=== PATIENT | male | born 1945 | race Caucasian/White ===

== ENCOUNTER 2018-01-07 11:50 | Inpatient (IN) ==
--- NOTE | 2018-01-07 12:26 | Emergency Department Note ---
Disposition Clinical Impression: Bladder mass Hydronephrosis Qualifiers: Hydronephrosis type: other Qualified Code(s): N13.39 - Other hydronephrosis Disposition: Admitted As Inpatient Condition: Serious [facility] Provider[facility] - Forms: ED Satisfaction Letter Time of Disposition: 12:56 Male Urogenital HPI - General Chief complaint: ED Urogenital-Male Stated complaint: Mass in bladder [facility] Time Seen by Provider: 01/07/18 12:18 Source: patient, other Mode of arrival: wheelchair Limitations: other Nursing Notes Reviewed: Yes Vital Signs Reviewed: Yes - History of Present Illness HPI Narrative: 72-year-old male comes from the [facility] apparently he has had some problems with renal insufficiency had an ultrasound that showed he was not emptying his bladder. Has seen nephrology who referred him to urology. He has been seen once there. Today his caregiver noticed blood in his urine [facility] that shows a very large mass in the bladder consistent with malignancy. Pt Subjective Complaint: other (Hematuria bladder mass) Onset (ago): Just BUSINESS MANAGEMENT CONSULTANT Duration: constant Reports: hematuria - Related Data Allergies Allergy/AdvReac Type Severity Reaction Status Date / Time No Known Allergies Allergy Verified 01/07/18 12:01 All systems ED: reviewed and negative except as stated. Constitutional: Denies: fever, chills, weakness, weight change Eyes: Denies: eye pain, eye discharge, vision change ENT ED: Denies: ear pain, throat pain, dental pain, hearing loss, epistaxis, congestion, dysphagia Cardiovascular: Denies: chest pain, palpitations, dyspnea on exertion, edema, syncope Respiratory: Denies: cough, dyspnea, wheezes, hemoptysis, stridor Gastrointestinal: Denies: abdominal pain, nausea, vomiting, diarrhea, constipation, hematemesis, melena, hematochezia Genitourinary: Reports: hematuria. Denies: urgency, dysuria, frequency Musculoskeletal: Denies: back pain, neck pain, arthralgia, myalgia Integumentary: Denies: rash, abrasion, lesions Neurological: Denies: headache, weakness, numbness, paresthesias, confusion, abnormal gait, vertigo Psychiatric: Denies: anxiety, depression, suicidal thoughts, homicidal thoughts , auditory hallucinations, visual hallucinations Endocrine: Denies: fatigue Hematological/Lymphatic: Denies: easy bleeding, easy bruising Allergic/Immunologic: Denies: facial swelling, urticaria Past Medical History - Past Medical History Medical history: Reports: cancer, CVA, renal disease - Social History Smoking Status: Current every day smoker Alcohol use: Reports: none Drug use: Reports: none Physical Exam - General Limitations: no limitations General appearance: alert, in no apparent distress - Head Head exam: normal inspection - Eye Eye exam: Present: normal appearance - ENT ENT exam: normal exam, normal oropharynx, mucous membranes moist, normal external ear exam - Neck Neck exam: Present: normal inspection, full ROM, trachea midline - Chest Chest inspection: Present: normal inspection, symmetric chest wall rise - Respiratory Respiratory exam: Present: normal lung sounds bilaterally - Cardiovascular Cardiovascular exam: Present: regular rate, normal rhythm, normal heart sounds - Neurological Exam Neurological exam: Present: alert, oriented X3, normal gait - Psychiatric Psychiatric exam: Present: normal affect, normal mood - Skin Skin exam: Present: warm, dry, intact, normal color Course - Reevaluation(s) Reevaluation #1: 72[place]year-old [place] patient was seen at [facility] today had a CT scan due to hematuria that shows a large bladder mass with infiltration of surrounding structures. Does show some obstruction with severe left hydronephrosis. Consultation obtained with urology who recommends admission and he will see in consult. Patient will be admitted to the hospitalist. Time: 12:54 - Consultations Consultation #1: Discussed with laura Lambert and he will see in consult. Time: 12:54 Consultation #2: Discussed with laura Martinez. Time: 12:54 Vital Signs Temperature 98.5 F 01/07/18 12:01 Pulse Rate 55 01/07/18 12:01 Respiratory Rate 18 01/07/18 12:01 Blood Pressure 127/86 01/07/18 12:01 O2 Sat by Pulse Oximetry 99 01/07/18 12:01 Temperature 98.5 F 01/07/18 12:01 Pulse Rate 55 01/07/18 12:01 Respiratory Rate 18 01/07/18 12:01 Blood Pressure 127/86 01/07/18 12:01 O2 Sat by Pulse Oximetry 99 01/07/18 12:01 Oxygen Delivery Oxygen Delivery Room Air
[2018-01-07] MEDS ORDERED: traMADol 50 MG TABLET PO PRN (14:29)
[2018-01-07 15:10] LABS: Basophils % 0.6 %; Eosinophils # 0.3 K/mcL (0.0-0.6); Eosinophils % 4.8 %; Hematocrit 38.2 % (37.5-50.1); Hemoglobin 12.5 g/dL (12.9-16.9); Immature Granulocytes % 0.1 % (0-4); Lymphocytes # 1.4 K/mcL (0.6-4.6); Mean Corpuscular HGB Conc 32.7 g/dL (31.6-35.5); Mean Corpuscular Hemoglobin 28.5 pg (28.0-33.3); Mean Corpuscular Volume 87.2 fL (83.0-100.0); Mean Platelet Volume 10.3 fL (9.4-12.4); Monocytes # 0.3 K/mcL (0.0-1.3); Monocytes % 4.7 %; Neutrophils # 4.8 K/mcL (1.6-8.9); Platelet Count 206 K/mcL (140-400); Red Blood Count 4.38 M/mcL (4.19-5.50); Red Cell Distribution Width 13.4 % (11.5-14.5); Segmented Neutrophils % 69.8 %
[2018-01-07] MEDS ORDERED: Naloxone 0.4 MG/ML INJ IVP PRN (15:49)
[2018-01-07] MEDS ORDERED: Acetaminophen 325 MG TABLET PO PRN (15:57)
[2018-01-07 17:20] LABS: Albumin 3.7 g/dL (3.5-5.7); Albumin/Globulin Ratio 1.4 (1.1-2.2); Bilirubin,Total 0.5 mg/dL (0.3-1.0); Calcium 9.5 mg/dL (8.6-10.3); Globulin 2.7 g/dL (2.4-3.5); Potassium 4.4 mEq/L (3.5-5.1); Total Protein 6.4 g/dL (6.4-8.9)
--- NOTE | 2018-01-07 17:35 | Urology - Consult Note ---
Date of Encounter: 01/07/18 Time of Encounter: 17:09 - Assessment and Plan (1) Bladder mass Current Visit: Yes Status: Acute Assessment and plan: The bladder mass seen on CT scan is almost certainly urothelial malignancy. Based on the invasion into the bladder wall, seminal vesicles and prostate this is an advanced cancer. The hydronephrosis also indicates a more high-grade invasive cancer. I suspect that this is at least a stage T3 lesion. Further evaluation of the pulmonary nodules as necessary as there is potential for metastatic disease. These findings were all communicated with the patient and he did voiced an understanding. He also did voiced desire in proceeding with all available surgical and oncology options. I feel the first step is to proceed with a TURBT. This will be planned tomorrow. At that time I will perform bilateral retrograde pyelograms and attempt a left ureteral stent. I suspect I will have less than 50% chance to successfully place the stent based on the CT findings. If I am unable to place the ureteral stent he will require a nephrostomy tube during this hospitalization. We discussed the risks of the procedure which includes injury to his urinary tract, bladder perforation, need for further procedures and potential inability to place a stent. (2) Hydronephrosis Current Visit: Yes Status: Acute Assessment and plan: Secondary to obstruction from bladder mass. Will attempt ureteral stent placement during TURBT. Qualifiers: Hydronephrosis type: other Qualified Code(s): N13.39 - Other hydronephrosis Urology CN:HPI Consult date: 01/07/18 Reason for consult Urology: Hydronephrosis History of present illness: 72-year-old male was actually seen in the last month in urology office for hydronephrosis of unknown etiology. A CT scan was ordered but had not been performed yet. His caregiver noticed gross hematuria and brought him to the [place] emergency room. CT scan at the time showed a large left sided bladder mass and severe hydronephrosis. There is concern for invasion into the prostate and seminal vesicles. There are some small pulmonary nodules of unknown etiology. No other evidence of widespread metastatic disease. Past Med Surg Social Fam HX - Past Medical History Medical history: cancer, CVA, renal disease Psychiatric history: no psych history - Past Surgical History Surgical History: cataract, other - Social History Smoking Status: Current every day smoker Smokeless Tobacco Status: No Alcohol use: none Drug use: none - Family History Mother Living Status: Hx Family Neuromuscular Disorders: Yes (Alzheimer's) Sister Living Status: Cause of : Crohn's Hx Family GI Disorders: Yes (Crohn's) Medications and Allergies Atorvastatin Calcium [Lipitor] 20 mg PO DAILY 01/07/18 [History] Brimonidine 0.2% [Alphagan] 1 drop RIGHT EYE BID 01/07/18 [History] Diltiazem HCl [Tiazac] 120 mg PO DAILY 01/07/18 [History] Gabapentin [Neurontin] 600 mg PO BID 01/07/18 [History] Levothyroxine Sodium [Levoxyl] 75 mcg PO DAILY 01/07/18 [History] Memantine [Namenda] 5 mg PO BID 01/07/18 [History] Omeprazole [PriLOSEC] 20 mg PO DAILY 01/07/18 [History] Tamsulosin [Flomax] 0.4 mg PO DAILY 01/07/18 [History] Timolol Maleate 0.5% [Timolol Maleate 0.5%] 1 drop RIGHT EYE BID 01/07/18 [ History] Tramadol HCl [Ultram] 100 mg PO TID PRN 01/07/18 [History] cloNIDine HCl [CloNIDine HCl] 0.1 mg PO BID 01/07/18 [History] 3 Allergy/AdvReac Type Severity Reaction Status Date / Time No Known Allergies Allergy Verified 01/07/18 12:01 Review of Systems - Constitutional fatigue, no chills, no fever(s) - EENT Nose, mouth and throat: no dizziness, no headache(s) - Cardiovascular no chest pain - Respiratory no cough - Gastrointestinal abdominal pain, nausea - Genitourinary hematuria - Musculoskeletal back pain - Integumentary no erythema - Neurological no confusion - Psychiatric no anxiety - Hematologic/Lymphatic no easy bleeding - Allergic/Immunologic no throat swelling Exam Initial Vital Signs Temp Pulse Resp BP Pulse Ox 98.5 F 55 18 127/86 99 01/07/18 12:01 01/07/18 12:01 01/07/18 12:01 01/07/18 12:01 01/07/18 12:01 - General physical appearance Present: no distress - Eyes Present: PERRL, conjunctiva is clear - ENT Present: normal nares, no hearing loss - Neck Present: no masses, no lymphadenopathy - Respiratory Present: normal respiratory effort - Cardiovascular Cardiovascular exam IM: RRR - Abdomen Abdomen: Present: soft, suprapubic tenderness. Absent: masses - Integumentary Absent: no rash, no growths - Neurologic Present: normal coordination. Absent: disoriented, confused Urology Results - Labs 01/07/18 14:59 Abnormal lab results Hgb 12.5 g/dL (12.9-16.9) L 01/07/18 14:59 All other labs normal. Consult Discharge Plan - Plan [facility]errals: [facility] [Primary Care Provider] -
--- NOTE | 2018-01-07 18:17 | Internal Med History&Physical ---
Date of Encounter: 01/07/18 Time of Encounter: 15:00 Assessment and Plan (1) Bladder mass Current visit: Yes Status: Acute Acute bladder mass detected on CT scan today at [facility] d/t pts. report of hematuria. Pt. has hx of throat cancer. Reports difficulty w/urination and retention d/t sever hydronephrosis. Bladder mass appears left-sided w/possible invasion into the prostate and seminal vesicles. No other evidence of widespread metastatic disease. Urology consult ordered and I appreciate the consult. Recommendation from Urology is to attempt TURBT tomorrow with bilateral retrograde pyelograms and possible left ureteral stent placement. D/t CT findings, stent placement may not be possible and nephrostomy tube may be required. Monitor I&O. Pt. discussed w/Dr. Littlejohn who agrees w/plan of care. Pt. high risk for further morbidity d/t possible advanced cancer, current severe hydronephrosis, Hx of cancer, current sx, and risk factors. Inpatient. (2) Hydronephrosis Current visit: Yes Status: Acute Acute hydronephrosis secondary to obstruction from bladder mass. Urology consult ordered and I appreciate the consult. Recommendation is for TURBT tomorrow for possible ureteral stent placement. Monitor I&O. Qualifiers: Hydronephrosis type: other Qualified Code(s): N13.39 - Other hydronephrosis (3) Unintended weight loss Current visit: Yes Status: Acute Acute and unintended weight loss of 30 pounds in 4 months time. Pt. and caregiver report his appetite has been reduced as well. Nutrition consult ordered for PO supplementation. Pt. reports he was placed on renal diet previously and did not eat d/t lack of food choices. Regular diet ordered. Monitor I&O and daily weight. (4) CKD (chronic kidney disease) stage 3, GFR 30-59 ml/min Current visit: Yes Status: Chronic Hx of CKD, currently stage 3 w/GFR of 31 and creatinine of 2.12. Will use IV fluids judiciously if warranted and avoid nephrotoxins. Strict I&O. (5) History of CVA in adulthood Current visit: Yes Status: Chronic Hx of previous CVA w/residual rt.-sided weakness. PT/OT consults ordered to assess patient for ambulation strength, stability, safety, and possible home assistive needs based on reports of history of falls. Falls/safety precautions, up with assist, and bed rest w/bathroom privileges w/assist only. Dysphagia nursing screen ordered. (6) DVT prophylaxis Current visit: Yes Status: Acute Bilateral SCDs on LEs for DVT prophylaxis d/t current hematuria. Internal Medicine - H&P: HPI Chief complaint: Hematuria Admitted From: Hospital to Hospital Transfer Plans for Post Hospital Care: Home History of present illness: Mr. 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 Patient's caregiver reports seeing blood in his urine and took patient to the [facility] for dx. CT scan showed bladder mass. Pt. referred to [facility]. Pt. reports associated difficulty w/ urination and bladder emptying. Pt. also reports weight loss of 30 pounds in 4 months with reduced appetite, hx of falls, and recent carotid endarterectomy of the left carotid and states right carotid has 100% blockage. Pt. denies recent illness, fever, chills, nausea, vomiting, headache, changes in vision, chest pain, palpitations, abdominal pain, diarrhea, constipation, numbness, tingling, presyncope, or syncope. Past Med Surg Social Fam HX - Past Medical History Source: patient, old records reviewed, other (Caregiver) Medical history: cancer (Throat), CVA (2012 w/rt-sided residual weakness), renal disease Psychiatric history: no psych history - Past Surgical History Surgical History: cataract, other - Social History Smoking Status: Current every day smoker Packs per day: 1/2 PPD Smokeless Tobacco Status: No Alcohol use: none Drug use: none Current living situation: Home Activity Level: Uses cane/walker Recent Out of Country Travel Within the Last 8 Weeks: No Exposure or Possible Exposure to Illness During Travel: No - Family History Mother Race: Family Member Ethnicity: Non- Living Status: Hx Family Neuromuscular Disorders: Yes (Alzheimer's) Sister Race: Family Member Ethnicity: Non- Living Status: Cause of : Crohn's Hx Family GI Disorders: Yes (Crohn's) Father History Unknown: Yes Race: Family Member Ethnicity: Non- Living Status: Internal Medicine - H&P: Meds Atorvastatin Calcium [Lipitor] 20 mg PO DAILY 01/07/18 [History] Brimonidine 0.2% [Alphagan] 1 drop RIGHT EYE BID 01/07/18 [History] Diltiazem HCl [Tiazac] 120 mg PO DAILY 01/07/18 [History] Gabapentin [Neurontin] 600 mg PO BID 01/07/18 [History] Levothyroxine Sodium [Levoxyl] 75 mcg PO DAILY 01/07/18 [History] Memantine [Namenda] 5 mg PO BID 01/07/18 [History] Omeprazole [PriLOSEC] 20 mg PO DAILY 01/07/18 [History] Tamsulosin [Flomax] 0.4 mg PO DAILY 01/07/18 [History] Timolol Maleate 0.5% [Timolol Maleate 0.5%] 1 drop RIGHT EYE BID 01/07/18 [ History] Tramadol HCl [Ultram] 100 mg PO TID PRN 01/07/18 [History] cloNIDine HCl [CloNIDine HCl] 0.1 mg PO BID 01/07/18 [History] 3 Allergy/AdvReac Type Severity Reaction Status Date / Time No Known Allergies Allergy Verified 01/07/18 12:01 All Systems PM: A 10-system review of systems was performed and is negative for pertinent findings except as documented above in the HPI. - Constitutional Constitutional: as per HPI, weight loss (30 pounds in 4 months, unintended), no chills, no fever(s), no night sweats - EENT Eyes: no change in vision, no discharge, no pain, no photophobia Ears: no ear discharge, no ear pain, no tinnitus Nose, mouth and throat: no dysphagia, no nasal discharge, no neck pain, no sore throat - Breasts Breasts: as per HPI - Cardiovascular Cardiovascular ROS IM: no chest pain, no diaphoresis, no dyspnea, no lightheadedness, no palpitations, no syncope - Respiratory Respiratory: no cough, no dyspnea, no wheezing, no excessive phlegm production - Gastrointestinal Gastrointestinal: as per HPI, other (Reduced appetite), no abdominal pain, no diarrhea, no hematemesis, no hematochezia, no melena, no nausea, no vomiting - Genitourinary Genitourinary ROS male: as per HPI, difficulty urinating, hematuria - Musculoskeletal Musculoskeletal ROS IM: no numbness, no tingling - Integumentary Integumentary IM: no rash, no unusual bruising - Neurological Neurological ROS: as per HPI, frequent falls, no confusion, no convulsions, no focal weakness, no numbness, no tingling, no tremor(s) - Psychiatric Psychiatric: as per HPI, change in appetite - Endocrine Endocrine IM: as per HPI - Hematologic/Lymphatic Hematologic/Lymphatic: no easy bruising - Allergic/Immunologic Allergic/Immunologic: as per HPI - Constitutional Vitals: Temp Pulse Resp BP Pulse Ox 98.5 F 52 20 109/60 96 01/07/18 12:01 01/07/18 15:11 01/07/18 15:11 01/07/18 15:11 01/07/18 15:11 General appearance: Present: cooperative, A&O X 3, pleasant, no acute distress, loss of weight, answers questions appropriately - Head Head exam: Present: atraumatic, normocephalic - Eye Eye exam: Present: PERRL, conjuntiva pink, sclera anicteric Pupils: Present: PERRL - ENT ENT exam: Present: normal exam - Neck Neck exam general surgery: Present: normal inspection, supple, trachea midline. Absent: lymphadenopathy - Respiratory Respiratory exam: Present: CTAB. Absent: accessory muscle use, rales, rhonchi, wheezes - Cardiovascular Cardiovascular exam: Present: RRR, +S1, +S2. Absent: diastolic murmur, gallop, rubs, systolic murmur - GI/Abdominal GI/Abdominal exam: Present: normal bowel sounds, soft, no peritoneal signs. Absent: distended, tenderness - Rectal Rectal exam: Present: deferred - Additional comments: exam deferred. - Extremities Exam Extremities exam: Present: warm, radial pulses palpable and symmetrical. Absent : calf tenderness, cyanotic, pedal edema - Back Exam Back exam: Present: normal inspection - Neurological Exam Neurological exam: Present: CN II-XII intact, oriented X3, no focal deficits. Absent: pronater drift, facial droop, speech deficit - Psychiatric Psychiatric exam: Present: normal affect, normal mood - Skin Skin exam: Present: abrasion (Left arm near IV site. Caregiver states she is not sure why he gets sores. ), dry, intact Internal Med - H&P Results - Labs CBC & Chem 7: 01/07/18 14:59 01/07/18 14:59
[2018-01-07] MEDS: cloNIDine HCl 0.1 MG TABLET PO SCH (21:04)
[2018-01-07] MEDS: Gabapentin 300 MG CAPSULE PO SCH (21:04)
[2018-01-08 06:00] LABS: Basophils % 0.4 %; Eosinophils # 0.4 K/mcL (0.0-0.6); Eosinophils % 5.8 %; Hematocrit 36.5 % (37.5-50.1); Hemoglobin 12.5 g/dL (12.9-16.9); Immature Granulocytes % 0.1 % (0-4); Lymphocytes # 1.9 K/mcL (0.6-4.6); Lymphocytes % 24.9 %; Mean Corpuscular HGB Conc 34.2 g/dL (31.6-35.5); Mean Corpuscular Hemoglobin 28.8 pg (28.0-33.3); Mean Corpuscular Volume 84.1 fL (83.0-100.0); Mean Platelet Volume 10.8 fL (9.4-12.4); Monocytes # 0.5 K/mcL (0.0-1.3); Neutrophils # 4.6 K/mcL (1.6-8.9); Platelet Count 212 K/mcL (140-400); Red Blood Count 4.34 M/mcL (4.19-5.50); Red Cell Distribution Width 13.5 % (11.5-14.5); Segmented Neutrophils % 61.8 %
[2018-01-08 06:25] LABS: Albumin 3.5 g/dL (3.5-5.7); Albumin/Globulin Ratio 1.5 (1.1-2.2); Bilirubin,Total 0.4 mg/dL (0.3-1.0); Calcium 9.3 mg/dL (8.6-10.3); Chol/HDL Ratio 4.6 (0-4.9); Globulin 2.4 g/dL (2.4-3.5); Magnesium 2.1 mg/dL (1.6-2.6); Potassium 4.2 mEq/L (3.5-5.1); Total Protein 5.9 g/dL (6.4-8.9)
[2018-01-08] MEDS ORDERED: Diltiazem CD (24hr) 120 MG CAPSULE PO SCH (09:00)
--- NOTE | 2018-01-08 09:18 | Anesthesia Evaluation PreOp ---
Date of Encounter: 01/08/18 Time of Encounter: 09:16 - Past History Planned Operation: TURBT Cardiac History: HTN, Hyperlipidemia, Other (patient can walk up a flight of stairs) Pulmonary History: Smoker, Other (hx throat cancer s/p radiation (no surgical intervention)) LEARNING DISABLED TEACHER History: CVA (residual deficit is difficulty with speech (his weakness has resolved)) Other Medical History: Renal (ckd), Thyroid, GERD, Other (bladder tumor) Anesthesia History: No Prior Anesthetic Complications (no fhx of problems with anesthesia that he knows of; patient denies any prior exposure to anesthesia) Alcohol Use: none Drug use: none Medications and Allergies Atorvastatin Calcium [Lipitor] 20 mg PO DAILY 01/07/18 [History] Brimonidine 0.2% [Alphagan] 1 drop RIGHT EYE BID 01/07/18 [History] Diltiazem HCl [Tiazac] 120 mg PO DAILY 01/07/18 [History] Gabapentin [Neurontin] 600 mg PO BID 01/07/18 [History] Levothyroxine Sodium [Levoxyl] 75 mcg PO DAILY 01/07/18 [History] Memantine [Namenda] 5 mg PO BID 01/07/18 [History] Omeprazole [PriLOSEC] 20 mg PO DAILY 01/07/18 [History] Tamsulosin [Flomax] 0.4 mg PO DAILY 01/07/18 [History] Timolol Maleate 0.5% [Timolol Maleate 0.5%] 1 drop RIGHT EYE BID 01/07/18 [ History] Tramadol HCl [Ultram] 100 mg PO TID PRN 01/07/18 [History] cloNIDine HCl [CloNIDine HCl] 0.1 mg PO BID 01/07/18 [History] 3 Allergy/AdvReac Type Severity Reaction Status Date / Time No Known Allergies Allergy Verified 01/07/18 12:01 - Meds/Allergy Pre-op Review Medications Reviewed: Yes Allergies Reviewed: Yes Beta Blockers on Current Med List: No Anesthesia Results - Labs 01/08/18 05:10 01/08/18 05:10 Anesthesia Exam Last Vital Signs Temp 97.9 F 01/08/18 05:53 Pulse 71 01/08/18 05:53 Resp 14 01/08/18 05:53 BP 173/91 01/08/18 05:53 Pulse Ox 93 01/08/18 05:53 Weight: 59 kg NPO (# of Hours): > 8 hrs - HEENT Pupil (Motor): Pupils equal, EOMI Mallampati: II Teeth: Edentulous Oral Opening: Greater than 3 - LEARNING DISABLED TEACHER LOC: Oriented - Cardiac Rhythm: Regular Murmur: None - Pulmonary Breath Sounds: bilateral Clear Respiratory Effort: Symmetrical Anesthesia Assess/Plan ASA Score: 3 Modified [place] Scale for Level of Consciousness: Cooperative, oriented, and tranquil Anesthetic Plan: General Monitoring Plan: Standard Monitors Recovery Plan: PACU
[2018-01-08] MEDS: cloNIDine HCl 0.1 MG TABLET PO SCH ×2 (10:42→22:07)
[2018-01-08] MEDS: Gabapentin 300 MG CAPSULE PO SCH ×2 (10:43→22:03)
[2018-01-08 10:44] LABS: Estimated Average Glucose 131 mg/dl; Hemoglobin A1C 6.2 %
[2018-01-08] MEDS ORDERED: *HR* Succinylcholine 200 MG/10 ML VIAL IVP ONE (15:49)
[2018-01-08] MEDS ORDERED: Ondansetron 4 MG/2 ML VIAL ONE (15:49)
[2018-01-08] MEDS ORDERED: Lidocaine -MPF 2% 2 ML VIAL ONE (15:49)
[2018-01-08] MEDS ORDERED: Dexamethasone 4 MG/ML VIAL ONE ×2 (15:49→16:01)
[2018-01-08] MEDS ORDERED: *HR* FentaNYL (PF) 100 MCG/2 ML VIAL ONE (15:49)
[2018-01-08] MEDS ORDERED: *HR* Rocuronium Bromide 50 MG/5 ML VIAL ONE (15:49)
[2018-01-08] MEDS ORDERED: *HR* Propofol 200 MG/20 ML VIAL IVP ONE (15:49)
[2018-01-08] MEDS ORDERED: *HR* Midazolam HCl 2 MG/2 ML VIAL ONE (15:49)
[2018-01-08] MEDS ORDERED: EPHEDrine 50 MG/ML VIAL ONE (16:48)
[2018-01-08] MEDS ORDERED: *HR* OxyCODONE Immed Rel 5 MG TABLET PO PRN (17:07)
[2018-01-08] MEDS ORDERED: *HR* HYDROmorphone 2 MG TABLET PO PRN (17:07)
[2018-01-08] MEDS ORDERED: traMADol 50 MG TABLET PO PRN (17:11)
--- NOTE | 2018-01-08 17:17 | Internal Med Progress Note ---
Date of Encounter: 01/08/18 Time of Encounter: 11:00 - Assessment and plan (1) Bladder mass Current Visit: Yes Status: Acute Assessment and plan: -Urology consult at and suspects bladder mass identified on CT scan suspicious for urothelial malignancy and thought to be advanced cancer based upon invasion into the bladder wall, some vesicles and prostate. -Recommendations to proceed with TURBT today (2) Hydronephrosis Current Visit: Yes Status: Acute Assessment and plan: Urology consult at and suspects secondary to obstruction from bladder mass. Recommendations to attempt ureteral stent placement during TURBT. Qualifiers: Hydronephrosis type: other Qualified Code(s): N13.39 - Other hydronephrosis (3) Unintended weight loss Current Visit: Yes Status: Acute Assessment and plan: -Patient reported of losing over 30 pounds in the last 4 months (4) CKD (chronic kidney disease) stage 3, GFR 30-59 ml/min Current Visit: Yes Status: Chronic Assessment and plan: Creatinine appears to be at baseline; will continue to monitor (5) History of CVA in adulthood Current Visit: Yes Status: Chronic Assessment and plan: Hx of previous CVA w/residual rt.-sided weakness. - Subjective Interval history: Patient with hematuria scheduled for TURBT with urology on 01/08/18 He is hemodynamically stable - Constitutional Vitals: Temp Pulse Resp BP Pulse Ox 97.4 F L 49 16 145/88 96 01/08/18 15:08 01/08/18 15:08 01/08/18 15:08 01/08/18 15:08 01/08/18 15:08 General appearance: Present: cooperative, A&O X 3, pleasant, no acute distress, loss of weight, answers questions appropriately - Cardiovascular Cardiovascular exam: Present: RRR, +S1, +S2. Absent: diastolic murmur, gallop, rubs, systolic murmur - GI/Abdominal GI/Abdominal exam: Present: normal bowel sounds, soft, no peritoneal signs. Absent: distended, tenderness Internal Medicine: Result - Labs CBC & Chem 7: 01/08/18 05:10 01/08/18 05:10 Labs: Short CBC 01/08/18 Range/Units 05:10 WBC 7.4 (4.3-11.1) K/mcL Hgb 12.5 L (12.9-16.9) g/dL Hct 36.5 L (37.5-50.1) % Plt Count 212 (140-400) K/mcL Neutrophils # 4.6 (1.6-8.9) K/mcL BMP 01/08/18 05:10 Sodium 136 Potassium 4.2 Chloride 104 Carbon Dioxide 25 BUN 44 H Creatinine 2.08 H Glucose 99 Calcium 9.3 Liver Function 01/08/18 Range/Units 05:10 Total Bilirubin 0.4 (0.3-1.0) mg/dL AST 8 L (13-39) Units/L ALT 4 L (7-52) Units/L Alkaline Phosphatase 74 (34-104) Units/L Albumin 3.5 (3.5-5.7) g/dL Consult Discharge Plan - Plan [facility]errals: [facility] [Primary Care Provider] - Lawrence Bethea MD [Partnered Physician] -
[2018-01-08] MEDS ORDERED: Ondansetron 4 MG/2 ML VIAL IVP PRN (17:23)
[2018-01-08] MEDS ORDERED: Neostigmine Methylsulfate 3 MG/3 ML SYRINGE ONE (17:38)
--- NOTE | 2018-01-08 17:41 | Operative Note ---
Date of procedure: 01/08/18 Pre-op diagnosis: Bladder tumor severe left hydronephrosis Post-op diagnosis: same Procedure: Large transurethral resection of bladder tumor. Tumor size greater than 3 cm Unable to perform retrograde pyelogram or stent placement secondary to tumor Anesthesia: RYDERA Surgeon: Lawrence Bethea Was there an nursing assistant present: No Estimated blood loss (cc): 50 Specimen: Bladder tumor Condition: stable Disposition: PACU Procedure in Detail: PROCEDURE IN DETAIL: Patient was taken back to the operating room, positioned supine on the operating table. Anesthesia was applied without complication. They were moved into dorsal lithotomy. Careful attention was maintained to cushion pressure points for patient's safety. The patient was prepped and draped in sterile fashion. Time-out was performed to confirm the proper patient and procedure. The resectoscope with visual obturator was placed without difficulty. The patient had a large nodular tumor with complete distortion of the left lateral wall of the bladder trending to the bladder neck. Very little normal architecture remained. Unable to distinguish the bladder, bladder neck and prostate secondary to the tumor. I was unable to locate either ureteral orifice although I suspect the right ureteral orifice had minimal involvement based on the location of the tumor. A 22-Northern [place] loop with a coagulation/cut settings of 80/80 was used to resect the exophytic portion of the tumor down to the level of the bladder wall. There were significant parasitic vessels which were controlled with coag. It was obvious there was gross tumor beneath my resection bed and that the resection was incomplete based on the depth of invasion of the tumor. I did not visualize the ureteral orifice even with resection of the tumor. There was no obturator reflex during the procedure. A 22-Northern Irish 3-way catheter was placed and CBI started. Unfortunately this will likely be an advanced, high-grade invasive malignancy. He will require interventional radiology placement of a nephrostomy tube tomorrow..
[2018-01-08] MEDS ORDERED: *HR* Labetalol 20 MG/4 ML SYRINGE IVP PRN (17:55)
[2018-01-08] MEDS ORDERED: *HR* Labetalol 100 MG/20 ML MDV IVP PRN (18:15)
--- NOTE | 2018-01-08 18:31 | Event Note ---
Date of Encounter: 01/08/18 Time of Encounter: 18:28 Discussed with the patient's significant other the results of the surgery. I discussed that I am not overly optimistic regarding his prognosis from this malignancy. We will need to lean on the pathology but I suspect this is advanced bladder cancer. I also recommend evaluation of the pulmonary lesions as these could represent metastatic disease. The next step would to be place a nephrostomy tube by interventional radiology. Treatment in the future may ultimately require chemotherapy and radiation. She is not convinced that he will want to pursue aggressive intervention. May want to consider palliative care and oncology consults prior to proceeding with the nephrostomy tube if they are considering a less aggressive treatment approach.
[2018-01-08] MEDS ORDERED: *HR* Morphine 2 MG/ML SYRINGE IVP PRN (19:02)
[2018-01-08] MEDS ORDERED: *HR* Belladonna Alkaloids/Opium 30 MG RECTAL SUPPOSITORY RC PRN (20:02)
[2018-01-08] MEDS ORDERED: Naloxone 0.4 MG/ML INJ IVP PRN (20:02)
[2018-01-08] MEDS ORDERED: Acetaminophen 325 MG TABLET PO PRN (20:02)
[2018-01-08] MEDS ORDERED: 0.9 % Sodium Chloride 1,000 ML IVC SCH (20:02)
--- NOTE | 2018-01-08 20:08 | Anesthesia Evaluation Post Op ---
Date of Encounter: 01/08/18 Time of Encounter: 19:25 - Vital Signs Vital Signs: Vital Signs/O2 Sat, Most Current Temp Pulse Resp BP Pulse Ox 97.5 F L 63 16 155/76 98 01/08/18 19:32 01/08/18 19:32 01/08/18 19:32 01/08/18 19:32 01/08/18 19:32 - Lungs Lungs: Clear Ascult./Percussion - Airway Airway: Non-obstructed - Cardiovascular Regular Rate - Mental Status Mental Status: Alert & Oriented, Answers Appropriately - Nausea Vomiting Nausea Vomiting: Not Present - Hydration Hydration: NPO, Canela catheter - Discharge PostOp Status: Transfer Patient to floor
--- NOTE | 2018-01-09 07:05 | Urology Progress Note ---
Date of Encounter: 01/09/18 Time of Encounter: 07:04 - Assessment and Plan (1) Bladder mass Current Visit: Yes Status: Acute Assessment and plan: s/p resection. path pending. pt still wants to pursue aggressive intervention. will proceed with nephrostomy tube placement. I still recommend ONC consult and palliative care consult. (2) Hydronephrosis Current Visit: Yes Status: Acute Qualifiers: Hydronephrosis type: other Qualified Code(s): N13.39 - Other hydronephrosis Progress Note Subjective: pain is less Narrative: doing ok after TURBT. minimal bleeding. Objective Initial Vital Signs Temp Pulse Resp BP Pulse Ox 98.5 F 55 18 127/86 99 01/07/18 12:01 01/07/18 12:01 01/07/18 12:01 01/07/18 12:01 01/07/18 12:01 - General physical appearance Present: no distress - Abdomen Present: soft - Additional Exam very light hematuria. - Labs 01/08/18 05:10 01/08/18 05:10 Diabetes panel 01/08/18 Range/Units 05:10 Hemoglobin A1c 6.2 H ( - 5.6) % - VTE Documentation of Mechanical Device: Intermittent pneumatic compression device Consult Discharge Plan - Plan [facility]errals: [facility] [Primary Care Provider] - Lawrence Bethea MD [Partnered Physician] -
[2018-01-09 07:27] LABS: Basophils % 0.1 %; Hematocrit 38.9 % (37.5-50.1); Hemoglobin 13.2 g/dL (12.9-16.9); Immature Granulocytes % 0.5 % (0-4); Lymphocytes # 0.9 K/mcL (0.6-4.6); Lymphocytes % 8.2 %; Mean Corpuscular HGB Conc 33.9 g/dL (31.6-35.5); Mean Corpuscular Hemoglobin 29.1 pg (28.0-33.3); Mean Corpuscular Volume 85.7 fL (83.0-100.0); Mean Platelet Volume 10.9 fL (9.4-12.4); Monocytes # 0.4 K/mcL (0.0-1.3); Monocytes % 3.3 %; Neutrophils # 9.7 K/mcL (1.6-8.9); Platelet Count 252 K/mcL (140-400); Red Blood Count 4.54 M/mcL (4.19-5.50); Red Cell Distribution Width 13.7 % (11.5-14.5); Segmented Neutrophils % 87.9 %
[2018-01-09 07:57] LABS: INR 1.2; Prothrombin Time 12.6 Seconds (9.4-12.1)
[2018-01-09] MEDS ORDERED: 0.9 % Sodium Chloride 500 ML ONE ×2 (08:46→09:00)
[2018-01-09] MEDS ORDERED: *HR* FentaNYL (PF) 100 MCG/2 ML VIAL IVP ONE (08:52)
[2018-01-09] MEDS ORDERED: Ampicillin/Sulbactam 1,500 MG in 0.9 % Sodium Chloride Mini Bag 100 ML IVPB ONE (08:53)
[2018-01-09] MEDS ORDERED: Diltiazem CD (24hr) 120 MG CAPSULE PO SCH (09:00)
[2018-01-09 09:33] LABS: Albumin 3.6 g/dL (3.5-5.7); Albumin/Globulin Ratio 1.3 (1.1-2.2); Bilirubin,Total 0.6 mg/dL (0.3-1.0); Calcium 9.5 mg/dL (8.6-10.3); Globulin 2.7 g/dL (2.4-3.5); Potassium 4.6 mEq/L (3.5-5.1); Total Protein 6.3 g/dL (6.4-8.9)
--- NOTE | 2018-01-09 09:35 | IR Procedure Note ---
Date of procedure: 01/09/18 Consent Obtained: Verbal consent, Written consent Timeout: Correct patient and procedure verified, Correct site verified, Time out performed, Skin prep completed Local anesthetic: Lidocaine 1% Indications: Ureteral obstruction Procedure Performed: Left Nephrostomy Tube Placement Was there an laundry assistant present: No Site/Technique: Left Nephrostomy tube placed in VIR Results/Findings: Severe left hydronephrosis Estimated blood loss (cc): 2 Complications: None; Tolerated procedure well Post Procedure Treatment Plan: Nephrostomy tube to gravity drainage Specimen: None
[2018-01-09] MEDS: Gabapentin 300 MG CAPSULE PO SCH (10:35)
[2018-01-09] MEDS: cloNIDine HCl 0.1 MG TABLET PO SCH (10:36)
[2018-01-09 15:37] VITALS: BP 149/92
--- NOTE | 2018-01-09 16:20 | Event Note ---
Date of Encounter: 01/09/18 Time of Encounter: 16:13 Talked with patient caregiver for 15 minutes. Pt wishes to leave without any further intervention and was made DNRCC. I instructed caregiver that I do NOT feel he is stable for discharge even if he doesnt desire aggressive intervention. His risk for bleeding after the TURBT is too high. He still wishes to leave and understands this is AMA. Hospice will be arranged as outpatient. we also discussed the pathology has not returned and different treatment options exist depending on type of cancer. if may not be chemo/ radiation if he has prostate cancer (rather than urothelial). I still suspect it is urothelial. they will leave nephrostomy tube in place. bag needs changed every month. tube every 6 months.
--- NOTE | 2018-01-09 16:39 | Event Note ---
Date of Encounter: 01/09/18 Time of Encounter: 16:35 Consulted on this patient diagnosed with metastatic bladder or prostrate cancer , with resection and nephrostomy tube placement today. When I arrived to room, pt was agitated and packing up room. Stated he was leaving, he has decided he wants no further aggressive care, and wants no intervention for his suspected cancer. Biopsy results are not back yet, but pt states he knows it is metastatic, and he wants only to go home and be comfortable. I spoke with Dr. Bethea, who does not feel pt is medically stable to be discharged and recommended pt sign out AMA. This was discussed with Dr. Garcia as well. Patient did want to transition to DNRCC and state form was completed, signed by pt and copies provided. His significant other , Vida Fatima, states that she will be staying with him providing care, states she is a BSN. Instructed them that if they desire hospice evaluation and services, to contact the [facility] team/ Sonja Moffett NP (his primary provider) in the AM for referral. Patient states he will be signing out AMA.
--- NOTE | 2018-01-09 16:57 | Oncology Inp Consult Note ---
<Lexus Najera Jailene - Last Filed: 01/09/18 16:56> Date of Encounter: 01/09/18 Time of Encounter: 16:56 - Data of Consult Requesting Physician: Honorio Garcia Primary Care Provider: [facility] - Consult Narrative History of present illness: Mr. 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), renal disease Psychiatric history: no psych history - Past Surgical History Surgical History: cataract, other - Social History Smoking Status: Current every day smoker Packs per day: 1/2 PPD Smokeless Tobacco Status: No Alcohol use: none Drug use: none - Family History Mother Race: Family Member Ethnicity: Non- Living Status: Hx Family Neuromuscular Disorders: Yes (Alzheimer's) Sister Race: Family Member Ethnicity: Non- Living Status: Cause of : Crohn's Hx Family GI Disorders: Yes (Crohn's) Father History Unknown: Yes Race: Family Member Ethnicity: Non- Living Status: Medications and Allergies Atorvastatin Calcium [Lipitor] 20 mg PO DAILY 01/07/18 [History] Brimonidine 0.2% [Alphagan] 1 drop RIGHT EYE BID 01/07/18 [History] Diltiazem HCl [Tiazac] 120 mg PO DAILY 01/07/18 [History] Gabapentin [Neurontin] 600 mg PO BID 01/07/18 [History] Levothyroxine Sodium [Levoxyl] 75 mcg PO DAILY 01/07/18 [History] Memantine [Namenda] 5 mg PO BID 01/07/18 [History] Omeprazole [PriLOSEC] 20 mg PO DAILY 01/07/18 [History] Tamsulosin [Flomax] 0.4 mg PO DAILY 01/07/18 [History] Timolol Maleate 0.5% [Timolol Maleate 0.5%] 1 drop RIGHT EYE BID 01/07/18 [ History] Tramadol HCl [Ultram] 100 mg PO TID PRN 01/07/18 [History] cloNIDine HCl [CloNIDine HCl] 0.1 mg PO BID 01/07/18 [History] 3 Allergy/AdvReac Type Severity Reaction Status Date / Time No Known Allergies Allergy Verified 01/07/18 12:01 Oncology - Exam - Constitutional Vitals: Temp Pulse Resp BP Pulse Ox 97.5 F L 73 18 149/92 99 01/09/18 15:35 01/09/18 15:35 01/09/18 15:35 01/09/18 15:35 01/09/18 15:35 Oncology - Results Labs: Short CBC 01/09/18 Range/Units 06:01 WBC 11.1 (4.3-11.1) K/mcL Hgb 13.2 (12.9-16.9) g/dL Hct 38.9 (37.5-50.1) % Plt Count 252 (140-400) K/mcL Neutrophils # 9.7 H (1.6-8.9) K/mcL BMP 01/09/18 06:01 Sodium 134 L Potassium 4.6 Chloride 100 Carbon Dioxide 26 BUN 43 H Creatinine 2.14 H Glucose 159 H Calcium 9.5 Liver Function 01/09/18 Range/Units 06:01 Total Bilirubin 0.6 (0.3-1.0) mg/dL AST 10 L (13-39) Units/L ALT 4 L (7-52) Units/L Alkaline Phosphatase 73 (34-104) Units/L Albumin 3.6 (3.5-5.7) g/dL Consult Discharge Plan - Plan Instructions: Bladder Cancer (GEN), Nephrostomy Tube Care (DC) [facility]errals: [facility] [Primary Care Provider] - (Please call office to make an appointment if desired) Lawrence Bethea MD [Partnered Physician] - (Please call office to make an appointment if desired) <Vito Colmenares - Last Filed: 01/10/18 15:47> Date of Encounter: 01/10/18 - Data of Consult Requesting Physician: Honorio Garcia Primary Care Provider: [facility]CP [facility] - Consult Narrative History of present illness: Mr. Bazzi is a 72 year old male seen for bladder mass with hx hematuria from [facility]. He had scans done at [facility] that is not available for my review. He had prior head and neck cancer Rx with chemotherapy/? radiation per history He underwent a cystoscopy exam and biopsy yesterday. He denies any bony aches or pains. He had Canela removed today and has urge to urinate. Oncology - Exam - Constitutional Vitals: Temp Pulse Resp BP Pulse Ox 97.5 F L 73 18 149/92 99 01/09/18 15:35 01/09/18 15:35 01/09/18 15:35 01/09/18 15:35 01/09/18 15:35
--- NOTE | 2018-01-09 17:14 | Event Note ---
Date of Encounter: 01/09/18 Time of Encounter: 12:00 Patient was seen, examined and evaluated bedside with Lexus Najera. Per patient' s caregiver, he does not wish to pursue any aggressive workup or treatment for his bladder mass/malignancy. He has had treatment for head and neck cancer before and does not wish to pursue with chemotherapy. His Canela has been removed and he is ready for discharge he is able to void without difficulty and urine reminds clear. He is status post left nephrostomy tube. Patient now caregiver wish to speak with us regarding additional testing or treatment options at this time. Palliative care has been consulted, patient will follow up out patient with providers at [facility]. If they wish to return for follow up with oncology we will be able to assist them with treatment.
--- NOTE | 2018-01-09 17:21 | Discharge Summary ---
Orders not resulted at time of discharge: Pending orders 01/08/18 17:55 Surgical Pathology [PTH] Routine Date of Encounter: 01/09/18 Time of Encounter: 01:00 - Discharge Diagnosis (1) Bladder mass Priority: Primary Status: Acute (2) Hydronephrosis Priority: Primary Status: Acute Qualifiers: Hydronephrosis type: other Qualified Code(s): N13.39 - Other hydronephrosis (3) Unintended weight loss Priority: Secondary Status: Acute (4) CKD (chronic kidney disease) stage 3, GFR 30-59 ml/min Priority: Secondary Status: Chronic (5) History of CVA in adulthood Priority: Secondary Status: Chronic Hospital course: Patient is a 72-year-old male with past medical history significant for throat cancer and prior CVA in addition to CJD who presents from the [facility] due to chief complaint of hematuria for the past several days. Patient had an abdominal CT which showed a bladder mass and patient was transferred to [facility] for further evaluation. During patients hospital stay urology was consulted with plans for resection of mass in addition to nephrostomy tube placement per patients request; suspected to be metastatic bladder/prostate cancer. While nephrostomy tube still in place in addition to follow catheter for urinary retention patient requested to leave AGAINST MEDICAL ADVICE. Risk was explained to the patient and he verbalized understanding. Urologist was also notified and agreed the patient was not safe for discharge home. Patient left AGAINST MEDICAL ADVICE. - Time Spent with Patient Total time spent providing and/or coordinating discharge services: Less than 30 minutes - Discharge Medications Home Medications: Atorvastatin Calcium [Lipitor] 20 mg PO DAILY 01/07/18 [History] Brimonidine 0.2% [Alphagan] 1 drop RIGHT EYE BID 01/07/18 [History] Diltiazem HCl [Tiazac] 120 mg PO DAILY 01/07/18 [History] Gabapentin [Neurontin] 600 mg PO BID 01/07/18 [History] Levothyroxine Sodium [Levoxyl] 75 mcg PO DAILY 01/07/18 [History] Memantine [Namenda] 5 mg PO BID 01/07/18 [History] Omeprazole [PriLOSEC] 20 mg PO DAILY 01/07/18 [History] Tamsulosin [Flomax] 0.4 mg PO DAILY 01/07/18 [History] Timolol Maleate 0.5% [Timolol Maleate 0.5%] 1 drop RIGHT EYE BID 01/07/18 [ History] Tramadol HCl [Ultram] 100 mg PO TID PRN 01/07/18 [History] cloNIDine HCl [CloNIDine HCl] 0.1 mg PO BID 01/07/18 [History] Allergies/Adverse Reactions: 3 Allergy/AdvReac Type Severity Reaction Status Date / Time No Known Allergies Allergy Verified 01/07/18 12:01 Date of admission: 01/07/18 15:49 [facility] care physician: [facility] Consults: 01/07/18 15:59 Consult to Nutrition [CONS] Routine Comment: Ensure for supplementation Consulting Provider: NUTRITION Reason for Dietary Consult: PO Supplementation 01/07/18 16:17 Consult to Nutrition [CONS] Routine Comment: Consulting Provider: NUTRITION Reason for Dietary Consult: MST Score 01/09/18 07:20 Consult to Interventional Radiology [CONS] Routine Consulting Provider: Radiology Interventional Cols Reason for Consult: L hydronephrosis secondary to bladder tumor/neph tube CT at [facility] Time Notified: 07:20 Call Completed: Yes 01/09/18 09:35 Consult to Oncology Hematology [CONS] Routine Consulting Provider: Lexus Najera Reason for Consult: bladder mass (?Ca) Call Completed: No 01/09/18 15:03 Consult to Palliative Care [CONS] Routine Comment: Consulting Provider: Palliative Care Geraldnie Reason for Consult: bladder cancer- poor prognosis Call Completed: No - Constitutional Vitals: Temp Pulse Resp BP Pulse Ox 97.5 F L 73 18 149/92 99 01/09/18 15:35 01/09/18 15:35 01/09/18 15:35 01/09/18 15:35 01/09/18 15:35 General appearance: Present: cooperative, A&O X 3, pleasant, no acute distress, loss of weight, answers questions appropriately - Respiratory Respiratory exam: Present: CTAB. Absent: accessory muscle use, rales, rhonchi, wheezes - Cardiovascular Cardiovascular exam: Present: RRR, +S1, +S2. Absent: diastolic murmur, gallop, rubs, systolic murmur - Patient Status Disposition: Left Against Medical Advice Condition: Serious - Discharge Instructions Instructions: Bladder Cancer (GEN), Nephrostomy Tube Care (DC) Follow [facility] With: [facility] [Primary Care Provider] - (Please call office to make an appointment if desired) Lawrence Bethea MD [Partnered Physician] - (Please call office to make an appointment if desired) - VTE Documentation of Mechanical Device: Intermittent pneumatic compression device
[2018-01-09] MEDS ORDERED: Gabapentin 300 MG CAPSULE PO SCH (21:00)
--- NOTE | 2018-01-10 15:53 | Oncology Inp Consult Note ---
Date of Encounter: 01/09/18 Time of Encounter: 12:00 Assessment and Plan (1) Bladder mass Status: Acute Assessment and plan: Patient with clinical symptoms of hematuria, status post cystoscopy for bladder mass final pathology is pending. He is status post nephrostomy tube that is draining pinkish urine, possible diagnosis discussed with patient and caregiver. They do not want to pursue any further investigations or treatment knowing the likelihood of cancer and outcomes from urology. Palliative care has been consulted for management of symptoms. He wants to be d/ carey home and f/u with [facility] services He will return back to clinic if he desires any treatment - Data of Consult Requesting Physician: Honorio Garcia Primary Care Provider: [facility]CP [facility] - Consult Narrative Reason for consult: bladder cancer History of present illness: Mr. Bazzi is a 72 year old male seen for bladder mass with hx hematuria from [facility]. He had scans done at [facility] that is not available for my review. He had prior head and neck cancer Rx with chemotherapy/? radiation per history He underwent a cystoscopy exam and biopsy yesterday. He denies any bony aches or pains. He had Canela removed today and has urge to urinate. 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), renal disease Psychiatric history: no psych history - Past Surgical History Surgical History: cataract, other - Social History Smoking Status: Current every day smoker Packs per day: 1/2 PPD Smokeless Tobacco Status: No Alcohol use: none Drug use: none - Family History Mother Race: Family Member Ethnicity: Non- Living Status: Hx Family Neuromuscular Disorders: Yes (Alzheimer's) Sister Race: Family Member Ethnicity: Non- Living Status: Cause of : Crohn's Hx Family GI Disorders: Yes (Crohn's) Father History Unknown: Yes Race: Family Member Ethnicity: Non- Living Status: Medications and Allergies Atorvastatin Calcium [Lipitor] 20 mg PO DAILY 01/07/18 [History] Brimonidine 0.2% [Alphagan] 1 drop RIGHT EYE BID 01/07/18 [History] Diltiazem HCl [Tiazac] 120 mg PO DAILY 01/07/18 [History] Gabapentin [Neurontin] 600 mg PO BID 01/07/18 [History] Levothyroxine Sodium [Levoxyl] 75 mcg PO DAILY 01/07/18 [History] Memantine [Namenda] 5 mg PO BID 01/07/18 [History] Omeprazole [PriLOSEC] 20 mg PO DAILY 01/07/18 [History] Tamsulosin [Flomax] 0.4 mg PO DAILY 01/07/18 [History] Timolol Maleate 0.5% [Timolol Maleate 0.5%] 1 drop RIGHT EYE BID 01/07/18 [ History] Tramadol HCl [Ultram] 100 mg PO TID PRN 01/07/18 [History] cloNIDine HCl [CloNIDine HCl] 0.1 mg PO BID 01/07/18 [History] 3 Allergy/AdvReac Type Severity Reaction Status Date / Time No Known Allergies Allergy Verified 01/07/18 12:01 Review of systems: as i n HPI Oncology - Exam - Constitutional Vitals: Temp Pulse Resp BP Pulse Ox 97.5 F L 73 18 149/92 99 01/09/18 15:35 01/09/18 15:35 01/09/18 15:35 01/09/18 15:35 01/09/18 15:35 General appearance: average body habitus - Head Head exam: Present: atraumatic, normal inspection - Eye Eye exam: Present: sclera anicteric - ENT ENT exam: Present: mucous membranes dry - Neck Neck exam: Present: full ROM - Respiratory Respiratory exam: Present: CTAB - Cardiovascular Cardiovascular exam: Present: +S1, +S2 - GI/Abdominal GI/Abdominal exam: Present: normal bowel sounds, soft - Extremities Exam Extremities exam: Present: normal inspection - Neurological Exam Neurological exam: Present: alert, oriented X3 - Psychiatric Psychiatric exam: Present: normal mood Consult Discharge Plan - Plan Instructions: Bladder Cancer (GEN), Nephrostomy Tube Care (DC) [facility]errals: [facility] [Primary Care Provider] - (Please call office to make an appointment if desired) Lawrence Bethea MD [Partnered Physician] - (Please call office to make an appointment if desired)
== END 2018-01-09 17:25 | disposition left against medical advice (07) | DRG 669 ==
LOC: EMEROO 11:50 → 3ANU 11:50
PROVIDERS: ADMIT Student in an Organized Health Care Education/Training Program; ATTEND Hospitalist

== ENCOUNTER 2018-02-08 15:48 | Observation (INO) ==
[2018-02-08 16:36] LABS: Basophils # 0.1 K/mcL (0.0-0.2); Basophils % 0.8 %; Eosinophils # 0.6 K/mcL (0.0-0.6); Eosinophils % 8.7 %; Hematocrit 39.9 % (37.5-50.1); Hemoglobin 13.3 g/dL (12.9-16.9); Immature Granulocytes % 0.3 % (0-4); Lymphocytes # 1.5 K/mcL (0.6-4.6); Lymphocytes % 22.8 %; Mean Corpuscular HGB Conc 33.3 g/dL (31.6-35.5); Mean Corpuscular Hemoglobin 29.6 pg (28.0-33.3); Mean Corpuscular Volume 88.7 fL (83.0-100.0); Mean Platelet Volume 10.3 fL (9.4-12.4); Monocytes # 0.4 K/mcL (0.0-1.3); Monocytes % 6.6 %; Neutrophils # 4.1 K/mcL (1.6-8.9); Platelet Count 243 K/mcL (140-400); Red Cell Distribution Width 13.3 % (11.5-14.5); Segmented Neutrophils % 60.8 %
[2018-02-08 16:42] LABS: INR 1.1; Prothrombin Time 11.9 Seconds (9.4-12.1)
[2018-02-08 16:44] LABS: Activated Partial Thrombo Time 29.7 Seconds (26.0-36.0)
--- NOTE | 2018-02-08 16:44 | Emergency Department Note ---
Disposition Clinical Impression: Nephrostomy complication Disposition: Admitted As Inpatient Condition: Good [facility]: [facility] Care Provider[facility] - Forms: ED Satisfaction Letter, Work/School Release Time of Disposition: 15:00 General Adult HPI - General Chief complaint: ED General Medical Stated complaint: Pulled nephrostomy tube Time Seen by Provider: 02/08/18 15:56 Source: patient Limitations: no limitations Nursing Notes Reviewed: Yes Vital Signs Reviewed: Yes - History of Present Illness HPI Narrative: 72-year-old male presents emergency Department with concerns of dislodged nephrostomy tube after mechanical fall. Patient has bladder cancer which caused a urinary outlet obstruction which required nephrostomy tube, placed by interventional radiology after an unsuccessful left ureter stent placement was attempted by Dr. Bethea. Patient states he was ambulating without his walker, denies associated chest pain or palpitations or nausea, vomiting, diarrhea. Patient denies significant pain in the emergency department. Pain Scale: 0 - Related Data Home Medications Medication Instructions Recorded Confirmed Atorvastatin Calcium [Lipitor] 20 mg PO DAILY 01/07/18 01/07/18 Brimonidine 0.2% [Alphagan] 1 drop RIGHT EYE BID 01/07/18 01/07/18 Diltiazem HCl [Tiazac] 120 mg PO DAILY 01/07/18 01/07/18 Gabapentin [Neurontin] 600 mg PO BID 01/07/18 01/07/18 Levothyroxine Sodium [Levoxyl] 75 mcg PO DAILY 01/07/18 01/07/18 Memantine [Namenda] 5 mg PO BID 01/07/18 01/07/18 Omeprazole [PriLOSEC] 20 mg PO DAILY 01/07/18 01/07/18 Tamsulosin [Flomax] 0.4 mg PO DAILY 01/07/18 01/07/18 Timolol Maleate 0.5% [Timolol 1 drop RIGHT EYE BID 01/07/18 01/07/18 Maleate 0.5%] Tramadol HCl [Ultram] 100 mg PO TID PRN 01/07/18 01/07/18 cloNIDine HCl [CloNIDine HCl] 0.1 mg PO BID 01/07/18 01/07/18 Allergies Allergy/AdvReac Type Severity Reaction Status Date / Time No Known Allergies Allergy Verified 01/07/18 12:01 All systems ED: reviewed and negative except as stated. Review of Systems: As Per HPI Past Medical History - Past Medical History Attestation: Yes The following information was validated with the patient. Source: patient Medical history: Reports: cancer, CVA, renal disease Surgical history: Reports: cataract, other Psychiatric history: Reports: no psych history - Social History Smoking Status: Current every day smoker Smokeless Tobacco Status: No Alcohol use: Reports: none Drug use: Reports: none Physical Exam General: Alert and in no acute distress Skin: Warm, dry, intact. Head: Normocephalic and atraumatic Neck: Supple, trachea midline and no tenderness Cardiovascular: RRR, no murmur, normal perfusion Respiratory: CTAB, no wheezing, cough, or respiratory distress Musculoskeletal: Normal strength, no tenderness, swelling or deformity GI: Soft, nontender, nondistended. Bowel sounds present Neuro: A&O to person, place, time and situation. No focal deficits noted on exam Psychiatric: cooperative and appropriate mood and affect. - General Limitations: no limitations General appearance: alert, in no apparent distress Course Vital Signs Temperature 98.1 F 02/08/18 15:49 Pulse Rate 63 02/08/18 15:49 Respiratory Rate 18 02/08/18 15:49 Blood Pressure 87/56 02/08/18 15:49 O2 Sat by Pulse Oximetry 94 02/08/18 15:49 Temperature 98.1 F 02/08/18 15:49 Pulse Rate 63 02/08/18 15:49 Respiratory Rate 18 02/08/18 15:49 Blood Pressure 87/56 02/08/18 15:49 O2 Sat by Pulse Oximetry 94 02/08/18 15:49 Oxygen Delivery Oxygen Delivery Room Air Medical Decision Making - [facility] Narrative Medical decision making narrative: I spoke with Dr. Land at 1645 recommended admission to the hospital for further care and evaluation and replacement of nephrostomy tube by interventional radiology. Dr. Coombs agreed to see the patient in the hospital as urology consult. I spoke with the hospitalist who is concerned about the availability of interventional radiology on the weekend. I am now calling interventional radiology to secure availability for this procedure. [address] Huang who agreed to see the patient today or tomorrow depending on the IR schedule - Medical Records Medical records reviewed: Yes I reviewed the patient's medical records. - Lab Data Lab results reviewed: Yes I reviewed the patient's lab results. Result diagrams: 02/08/18 16:25 02/08/18 16:25 Lab Results 02/08/18 02/08/18 02/08/18 Range/Units 16:25 16:25 16:25 WBC 6.7 (4.3-11.1) K/mcL RBC 4.50 (4.19-5.50) M/mcL Hgb 13.3 (12.9-16.9) g/dL Hct 39.9 (37.5-50.1) % MCV 88.7 (83.0-100.0) fL MCH 29.6 (28.0-33.3) pg MCHC 33.3 (31.6-35.5) g/dL RDW 13.3 (11.5-14.5) % Plt Count 243 (140-400) K/mcL MPV 10.3 (9.4-12.4) fL Immature Gran % 0.3 (0-4) % Seg Neutrophils % 60.8 % Lymphocytes % 22.8 % Monocytes % 6.6 % Eosinophils % 8.7 % Basophils % 0.8 % Neutrophils # 4.1 (1.6-8.9) K/mcL Lymphocytes # 1.5 (0.6-4.6) K/mcL Monocytes # 0.4 (0.0-1.3) K/mcL Eosinophils # 0.6 (0.0-0.6) K/mcL Basophils # 0.1 (0.0-0.2) K/mcL PT 11.9 (9.4-12.1) Seconds INR 1.1 APTT 29.7 (26.0-36.0) Seconds Sodium 137 (136-145) mEq/L Potassium 4.3 (3.5-5.1) mEq/L Chloride 104 (98-107) mEq/L Carbon Dioxide 29 (23-29) mEq/L BUN 32 H (8-23) mg/dL Creatinine 2.00 H (0.70-1.30) mg/dL Est GFR ( Amer) 40 L (> 60) Est GFR (Non-Af Amer) 33 L (> 60) BUN/Creatinine Ratio 16 (6-26) Glucose 128 H (70-105) mg/dL Calculated Osmolality 293 (280-300) Lactic Acid (0.5-2.2) mmol/L Calcium 9.4 (8.6-10.3) mg/dL 02/08/18 Range/Units 16:25 WBC (4.3-11.1) K/mcL RBC (4.19-5.50) M/mcL Hgb (12.9-16.9) g/dL Hct (37.5-50.1) % MCV (83.0-100.0) fL MCH (28.0-33.3) pg MCHC (31.6-35.5) g/dL RDW (11.5-14.5) % Plt Count (140-400) K/mcL MPV (9.4-12.4) fL Immature Gran % (0-4) % Seg Neutrophils % % Lymphocytes % % Monocytes % % Eosinophils % % Basophils % % Neutrophils # (1.6-8.9) K/mcL Lymphocytes # (0.6-4.6) K/mcL Monocytes # (0.0-1.3) K/mcL Eosinophils # (0.0-0.6) K/mcL Basophils # (0.0-0.2) K/mcL PT (9.4-12.1) Seconds INR APTT (26.0-36.0) Seconds Sodium (136-145) mEq/L Potassium (3.5-5.1) mEq/L Chloride (98-107) mEq/L Carbon Dioxide (23-29) mEq/L BUN (8-23) mg/dL Creatinine (0.70-1.30) mg/dL Est GFR ( Amer) (> 60) Est GFR (Non-Af Amer) (> 60) BUN/Creatinine Ratio (6-26) Glucose (70-105) mg/dL Calculated Osmolality (280-300) Lactic Acid 1.0 (0.5-2.2) mmol/L Calcium (8.6-10.3) mg/dL - Radiology Data Radiology results reviewed: Yes I reviewed the patient's radiology results.
[2018-02-08 16:55] LABS: Calcium 9.4 mg/dL (8.6-10.3); Potassium 4.3 mEq/L (3.5-5.1)
--- NOTE | 2018-02-08 19:16 | Urology - Consult Note ---
Date of Encounter: 02/08/18 Time of Encounter: 19:14 - Assessment and Plan (1) Cancer of overlapping sites of bladder Current Visit: Yes Status: Acute Assessment and plan: Patient has highly aggressive cancer on resection. He is scheduled to see oncology on Saturday. I have spoken with oncology and they will see the patient tomorrow. I am going to obtain a CT abdomen and pelvis without contrast secondary to his elevated creatinine to evaluate for possible progression of disease as the patient has only been voiding small amounts with a unilateral nephrostomy tube in place. The patient's family member in the room was quite demanding and did not seem happy with any answer that I gave her regarding the patient. I explained to her that we will move as fast as possible to have the patient have his nephrostomy tube replaced. We will do our best to control his pain while he is in the hospital. I did also explained to her that I will have oncology come by and talk to him because he could miss his appointment on Saturday depending on how well he does with the nephrostomy tube replacement. (2) Hydronephrosis Current Visit: Yes Status: Acute Assessment and plan: Likely secondary to obstruction from urothelial carcinoma. We will evaluate for possible right hydronephrosis with CT scan. Patient to have nephrostomy tube placed by interventional radiology either tonight or tomorrow Qualifiers: Hydronephrosis type: other Qualified Code(s): N13.39 - Other hydronephrosis (3) Elevated serum creatinine Current Visit: Yes Status: Acute Assessment and plan: Patient appears to be at baseline. We will observe after drainage of kidneys. Urology CN:HPI Consult date: 02/08/18 Reason for consult Urology: Other (pulled left nephrostomy tube out) Requesting physician: Nicholas Gonzalez History of present illness: Dominic is a 72-year-old male who back in December was found to have a large bladder mass who underwent resection by Dr. Bethea. Patient found to have T2 disease. On CT scan done at that time it appeared the tumor invaded into the seminal vesicle and prostate. Patient had left renal obstruction secondary to tumor. He underwent left nephrostomy tube placement at that time. Patient then proceeded to leave AMA from the hospital prior to completion of plan. He subsequently followed up with Dr. Bethea as an outpatient and decided that he would like to pursue full course of therapy. Patient is scheduled to see oncology on Saturday. Patient states that he has significant bilateral flank discomfort. It also hurts to void. His bilateral flank pain is a 10 out of 10 in nature with no obvious radiation and sharp. Patient denies any nausea or vomiting. No fevers. Patient states that while he had his left nephrostomy tube in place he did not void much urine throughout the day. Past Med Surg Social Fam HX - Past Medical History Medical history: cancer, CVA, renal disease Psychiatric history: no psych history - Past Surgical History Surgical History: cataract, other - Social History Smoking Status: Current every day smoker Smokeless Tobacco Status: No Alcohol use: none Drug use: none - Family History Mother Family Member Ethnicity: Non- Living Status: Hx Family Neuromuscular Disorders: Yes (Alzheimer's) Sister Family Member Ethnicity: Non- Living Status: Hx Family GI Disorders: Yes (Crohn's) Father Family Member Ethnicity: Non- Living Status: Medications and Allergies Atorvastatin Calcium [Lipitor] 20 mg PO DAILY 01/07/18 [History] Brimonidine 0.2% [Alphagan] 1 drop RIGHT EYE BID 01/07/18 [History] Diltiazem HCl [Tiazac] 120 mg PO DAILY 01/07/18 [History] Gabapentin [Neurontin] 600 mg PO BID 01/07/18 [History] Levothyroxine Sodium [Levoxyl] 75 mcg PO DAILY 01/07/18 [History] Memantine [Namenda] 5 mg PO BID 01/07/18 [History] Omeprazole [PriLOSEC] 20 mg PO DAILY 01/07/18 [History] Tamsulosin [Flomax] 0.4 mg PO DAILY 01/07/18 [History] Timolol Maleate 0.5% [Timolol Maleate 0.5%] 1 drop RIGHT EYE BID 01/07/18 [ History] Tramadol HCl [Ultram] 100 mg PO TID PRN 01/07/18 [History] cloNIDine HCl [CloNIDine HCl] 0.1 mg PO BID 01/07/18 [History] 3 Allergy/AdvReac Type Severity Reaction Status Date / Time No Known Allergies Allergy Verified 01/07/18 12:01 Review of Systems - Constitutional no chills, no fever(s) - EENT Nose, mouth and throat: dry mouth (Secondary to head and neck cancer), no dizziness, no sore throat, no throat swelling - Cardiovascular no chest pain - Respiratory no cough, no dyspnea - Gastrointestinal abdominal pain, no nausea, no vomiting - Genitourinary as per HPI - Musculoskeletal back pain, no muscle weakness - Integumentary no erythema, no swelling, no unusual bruising - Neurological no confusion, no weakness - Psychiatric no anxiety, no confusion - Hematologic/Lymphatic no easy bleeding, no lymphadenopathy - Allergic/Immunologic no throat swelling, no wheezing Exam Initial Vital Signs Temp Pulse Resp BP Pulse Ox 98.1 F 63 18 87/56 94 02/08/18 15:49 02/08/18 15:49 02/08/18 15:49 02/08/18 15:49 02/08/18 15:49 General/Neuological: alert and oriented x 3 Eyes: normal pupils, non-icteric Neck: no lymphadenopathy noted, supple to touch Cardiovascular: RRR, no murmurs, no jvd Respiratory: normal respiratory effort, clear bilaterally ABD: soft, nontender, no masses palpated, good bowel sounds Back: no pain on percussion bilaterally : normal phallus, normal scrotum, testicles and epididymides normal, urethral meatus normal. Skin: no rashes noted Musculoskeletal: normal gait, FROMx4 Urology Results - Labs 02/08/18 16:25 02/08/18 16:25 Abnormal lab results BUN 32 mg/dL (8-23) H 02/08/18 16:25 Creatinine 2.00 mg/dL (0.70-1.30) H 02/08/18 16:25 Est GFR ( Amer) 40 (> 60) L 02/08/18 16:25 Est GFR (Non-Af Amer) 33 (> 60) L 02/08/18 16:25 Glucose 128 mg/dL (70-105) H 02/08/18 16:25 Diabetes panel 02/08/18 Range/Units 16:25 Sodium 137 (136-145) mEq/L Potassium 4.3 (3.5-5.1) mEq/L Chloride 104 (98-107) mEq/L Carbon Dioxide 29 (23-29) mEq/L BUN 32 H (8-23) mg/dL Creatinine 2.00 H (0.70-1.30) mg/dL Glucose 128 H (70-105) mg/dL Calcium 9.4 (8.6-10.3) mg/dL Calcium panel 02/08/18 Range/Units 16:25 Calcium 9.4 (8.6-10.3) mg/dL Pituitary panel 02/08/18 Range/Units 16:25 Sodium 137 (136-145) mEq/L Potassium 4.3 (3.5-5.1) mEq/L Chloride 104 (98-107) mEq/L Carbon Dioxide 29 (23-29) mEq/L BUN 32 H (8-23) mg/dL Creatinine 2.00 H (0.70-1.30) mg/dL Glucose 128 H (70-105) mg/dL Calcium 9.4 (8.6-10.3) mg/dL Adrenal panel 02/08/18 Range/Units 16:25 Sodium 137 (136-145) mEq/L Potassium 4.3 (3.5-5.1) mEq/L Chloride 104 (98-107) mEq/L Carbon Dioxide 29 (23-29) mEq/L BUN 32 H (8-23) mg/dL Creatinine 2.00 H (0.70-1.30) mg/dL Glucose 128 H (70-105) mg/dL Calcium 9.4 (8.6-10.3) mg/dL All other labs normal. Consult Discharge Plan - Plan [facility]errals: [facility] [Primary Care Provider] -
[2018-02-08] MEDS ORDERED: Naloxone 0.4 MG/ML INJ IVP PRN (20:33)
[2018-02-08] MEDS ORDERED: Acetaminophen 325 MG TABLET PO PRN (20:39)
[2018-02-08] MEDS ORDERED: traMADol 50 MG TABLET PO SCH (21:00)
--- NOTE | 2018-02-08 21:09 | Internal Med History&Physical ---
Date of Encounter: 02/08/18 Time of Encounter: 20:00 Internal Medicine - H&P: HPI Chief complaint: dislodged neprhostomy tube Admitted From: Emergency Dept Plans for Post Hospital Care: Home History of present illness: Mr. Bazzi is a 72 year old male who presents to the ER today after accidentally dislodging his nephrostomy tube. He sustained a mechanical fall and, in the process of falling, his nephrostomy tube was pulled out. As advised by his urologist, he came to ER right away for replacement of nephrostomy tube. Dr. Burk saw him in consultation in the ER and recommended admission for nephrostomy tube placement. I saw patient in the ER and spoke with him and his girlfriend/POA. Patient feels fine otherwise and has no complaints. The fall he had today was mechanical and he denied injuring himself. He had no lightheadedness or dizziness. He has had no vomiting or diarrhea. He is actually hungry and thirsty, but he has been kept nothing by mouth since admission in the ER. He has complete obstructive uropathy according to his POA. He is unable to void at all through his urethra due to his bladder cancer. He has chronic kidney disease and hydronephrosis. Therefore, nephrostomy tube is of an urgent matter. I called and spoke with interventional radiology (Dr. Amaya). He confirmed he will do nephrostomy tube in the morning and requested we keep him nothing by mouth after midnight. I then informed patient and POA, and they are comfortable with the plan. Past Med Surg Social Fam HX - Past Medical History Attestation: Yes The following information was validated with the patient. Source: patient, old records reviewed, obtained from family Medical history: cancer (bladder cancer), CVA, renal disease Psychiatric history: no psych history - Past Surgical History Surgical History: cataract, other - Social History Smoking Status: Current every day smoker Smokeless Tobacco Status: No Alcohol use: none Drug use: none Current living situation: Home, With Family Activity Level: Independent ambulation Recent Out of Country Travel Within the Last 8 Weeks: No - Family History Mother Family Member Ethnicity: Non- Living Status: Hx Family Neuromuscular Disorders: Yes (Alzheimer's) Sister Family Member Ethnicity: Non- Living Status: Hx Family GI Disorders: Yes (Crohn's) Father Family Member Ethnicity: Non- Living Status: Internal Medicine - H&P: Meds Atorvastatin Calcium [Lipitor] 20 mg PO DAILY 01/07/18 [History] Brimonidine 0.2% [Alphagan] 1 drop RIGHT EYE BID 01/07/18 [History] Diltiazem HCl [Tiazac] 120 mg PO DAILY 01/07/18 [History] Gabapentin [Neurontin] 600 mg PO BID 01/07/18 [History] Levothyroxine Sodium [Levoxyl] 75 mcg PO DAILY 01/07/18 [History] Memantine [Namenda] 5 mg PO BID 01/07/18 [History] Omeprazole [PriLOSEC] 20 mg PO DAILY 01/07/18 [History] Tamsulosin [Flomax] 0.4 mg PO DAILY 01/07/18 [History] Timolol Maleate 0.5% [Timolol Maleate 0.5%] 1 drop RIGHT EYE BID 01/07/18 [ History] Tramadol HCl [Ultram] 100 mg PO QID 01/07/18 [History] cloNIDine HCl [CloNIDine HCl] 0.1 mg PO BID 01/07/18 [History] Aspirin [Lo-Dose Aspirin EC] 81 mg PO DAILY 02/08/18 [History] Vitamin D3 1,000 units PO DAILY 02/08/18 [History] 3 Allergy/AdvReac Type Severity Reaction Status Date / Time Iodinated Contrast- Oral and Allergy See Verified 02/08/18 20:29 IV Dye Comments - Constitutional Constitutional: no chills, no fever(s), no night sweats - EENT Eyes: no blurry vision, no change in vision Ears: no ear pain, no tinnitus Nose, mouth and throat: no nasal congestion, no nasal discharge, no sinus pressure, no sore throat - Cardiovascular Cardiovascular ROS IM: no chest pain, no diaphoresis, no dyspnea, no lightheadedness, no orthopnea, no syncope - Respiratory Respiratory: wheezing (chronic), no cough, no dyspnea, no hemoptysis, no chest congestion, no excessive phlegm production, no change in phlegm color, no pain with cough - Gastrointestinal Gastrointestinal: no abdominal pain, no diarrhea, no hematemesis, no hematochezia, no melena, no nausea, no vomiting - Genitourinary Genitourinary ROS male: other (anuria due to obstruction), no flank pain, no hematuria - Musculoskeletal Musculoskeletal ROS IM: no arthralgias, no back pain, no myalgias - Integumentary Integumentary IM: no rash, no jaundice - Neurological Neurological ROS: no dizziness, no focal weakness, no frequent falls, no headache(s) - Psychiatric Psychiatric: no anxiety, no depression - Endocrine Endocrine IM: no polydipsia, no polyuria - Allergic/Immunologic Allergic/Immunologic: wheezing, no GI upset with certain foods - Constitutional Vitals: Temp Pulse Resp BP Pulse Ox 98.1 F 54 16 132/71 96 02/08/18 15:49 02/08/18 20:56 02/08/18 20:56 02/08/18 20:56 02/08/18 20:56 General appearance: Present: cooperative, A&O X 3, pleasant, no acute distress, answers questions appropriately - Head Head exam: Present: atraumatic, normal inspection - Eye Eye exam: Present: EOMI, normal appearance, PERRL. Absent: scleral icterus Pupils: Present: normal accommodation - ENT ENT exam: Present: mucous membranes dry, normal exam, normal oropharynx - Neck Neck exam general surgery: Present: full ROM, supple. Absent: tenderness, nuchal rigidity, thyromegaly - Respiratory Respiratory exam: Present: wheezes. Absent: accessory muscle use, chest wall tenderness, rales, respiratory distress, rhonchi - Cardiovascular Cardiovascular exam: Present: RRR, +S1, +S2. Absent: diastolic murmur, systolic murmur - GI/Abdominal GI/Abdominal exam: Present: normal bowel sounds, soft. Absent: guarding, hepatomegaly, mass, rebound, splenomegaly, tenderness - Extremities Exam Extremities exam: Present: full ROM, normal capillary refill, warm, radial pulses palpable and symmetrical. Absent: calf tenderness, joint swelling, pedal edema, tenderness - Back Exam Back exam: Present: normal inspection. Absent: CVA tenderness (L), CVA tenderness (R) - Neurological Exam Neurological exam: Present: alert, CN II-XII intact, oriented X3, no focal deficits, strengths equal and symetr throughout - Psychiatric Psychiatric exam: Present: normal affect, normal mood - Skin Skin exam: Present: dry, warm. Absent: rash Internal Med - H&P Results - Labs CBC & Chem 7: 02/08/18 16:25 02/08/18 16:25 - Diagnostic Studies Chest x-ray Status: image reviewed by me (negative) CT scan - abdomen Additional comments: Report reviewed -- bilateral hydronephrosis due to bladder mass - Assessment and plan (1) Obstructive uropathy Current Visit: Yes Status: Acute Assessment and plan: 1. I personally called and spoke with IR (Dr. Huang) and he confirmed nephrostomy tube will be replaced tomorrow morning. 2. npo after midnight for procedure tomorrow. 3. Monitor renal function. (2) CKD (chronic kidney disease) stage 3, GFR 30-59 ml/min Current Visit: No Status: Chronic Assessment and plan: 1. Renal function at baseline. 2. Nephrostomy tube as planned tomorrow. (3) Bladder cancer Current Visit: Yes Status: Acute Assessment and plan: 1. Patient to follow up with oncology next week as planned to discuss treatment options. 2. He also follows with urology. Qualifiers: Bladder location: unspecified site Qualified Code(s): C67.9 - Malignant neoplasm of bladder, unspecified (4) DVT prophylaxis Current Visit: No Status: Acute Assessment and plan: 1. Heparin SQ.
[2018-02-08] MEDS: *HR* Heparin 5,000 UNIT/ML VIAL SQ SCH (21:24)
[2018-02-08] MEDS ORDERED: Ipratropium/Albuterol Neb 3 ML IH PRN (21:25)
[2018-02-08] MEDS: Gabapentin 300 MG CAPSULE PO SCH (21:27)
[2018-02-08] MEDS: traMADol 50 MG TABLET PO SCH (21:27)
[2018-02-08] MEDS: Aspirin Enteric Coated 81 MG Tablet PO SCH (21:31)
[2018-02-08] MEDS: *HR* FentaNYL (PF) 100 MCG/2 ML VIAL IVP PRN (23:52)
[2018-02-09 04:28] LABS: Basophils % 0.1 %; Eosinophils # 0.1 K/mcL (0.0-0.6); Eosinophils % 0.8 %; Hematocrit 39.4 % (37.5-50.1); Hemoglobin 13.1 g/dL (12.9-16.9); Immature Granulocytes % 0.4 % (0-4); Lymphocytes # 0.7 K/mcL (0.6-4.6); Lymphocytes % 5.4 %; Mean Corpuscular HGB Conc 33.2 g/dL (31.6-35.5); Mean Corpuscular Hemoglobin 28.7 pg (28.0-33.3); Mean Corpuscular Volume 86.2 fL (83.0-100.0); Mean Platelet Volume 10.7 fL (9.4-12.4); Monocytes # 0.5 K/mcL (0.0-1.3); Monocytes % 3.7 %; Platelet Count 217 K/mcL (140-400); Red Blood Count 4.57 M/mcL (4.19-5.50); Red Cell Distribution Width 13.2 % (11.5-14.5); Segmented Neutrophils % 89.6 %
[2018-02-09 04:33] LABS: INR 1.2; Prothrombin Time 12.5 Seconds (9.4-12.1)
[2018-02-09 04:35] LABS: Activated Partial Thrombo Time 25.5 Seconds (26.0-36.0)
[2018-02-09 04:53] LABS: Albumin 3.6 g/dL (3.5-5.7); Albumin/Globulin Ratio 1.4 (1.1-2.2); Bilirubin,Total 0.6 mg/dL (0.3-1.0); Globulin 2.5 g/dL (2.4-3.5); Magnesium 1.7 mg/dL (1.6-2.6); Potassium 3.9 mEq/L (3.5-5.1); Total Protein 6.1 g/dL (6.4-8.9)
[2018-02-09] MEDS: *HR* Heparin 5,000 UNIT/ML VIAL SQ SCH ×2 (06:00→18:06)
--- NOTE | 2018-02-09 07:16 | Urology Progress Note ---
Date of Encounter: 02/09/18 Time of Encounter: 07:14 - Assessment and Plan (1) Cancer of overlapping sites of bladder Current Visit: Yes Status: Acute (2) Hydronephrosis Current Visit: Yes Status: Acute Assessment and plan: IR to come in today for nephrostomy tube replacement. I have asked to potentially have one placed on right as well as patient wants to have all available options for him. Qualifiers: Hydronephrosis type: other Qualified Code(s): N13.39 - Other hydronephrosis (3) Elevated serum creatinine Current Visit: Yes Status: Acute Assessment and plan: improved with hydration overnight Progress Note Narrative: Patient seen this am. sleepy. no new pain. ct showed right hydro as well as left. markedly invasive mass from bladder into prostate and SV's Objective Initial Vital Signs Temp Pulse Resp BP Pulse Ox 98.1 F 63 18 87/56 94 02/08/18 15:49 02/08/18 15:49 02/08/18 15:49 02/08/18 15:49 02/08/18 15:49 - General physical appearance Present: well developed, well nourished - Abdomen Present: soft. Absent: tender - Genitourinary Present: normal penis with no external lesions - Labs 02/09/18 03:54 02/09/18 03:54 Diabetes panel 02/09/18 Range/Units 03:54 Sodium 138 (136-145) mEq/L Potassium 3.9 (3.5-5.1) mEq/L Chloride 104 (98-107) mEq/L Carbon Dioxide 26 (23-29) mEq/L BUN 33 H (8-23) mg/dL Creatinine 1.91 H (0.70-1.30) mg/dL Glucose 133 H (70-105) mg/dL Calcium 9.0 (8.6-10.3) mg/dL AST 9 L (13-39) Units/L ALT 4 L (7-52) Units/L Alkaline Phosphatase 79 (34-104) Units/L Albumin 3.6 (3.5-5.7) g/dL Calcium panel 02/09/18 Range/Units 03:54 Calcium 9.0 (8.6-10.3) mg/dL Albumin 3.6 (3.5-5.7) g/dL Pituitary panel 02/09/18 Range/Units 03:54 Sodium 138 (136-145) mEq/L Potassium 3.9 (3.5-5.1) mEq/L Chloride 104 (98-107) mEq/L Carbon Dioxide 26 (23-29) mEq/L BUN 33 H (8-23) mg/dL Creatinine 1.91 H (0.70-1.30) mg/dL Glucose 133 H (70-105) mg/dL Calcium 9.0 (8.6-10.3) mg/dL Adrenal panel 02/09/18 Range/Units 03:54 Sodium 138 (136-145) mEq/L Potassium 3.9 (3.5-5.1) mEq/L Chloride 104 (98-107) mEq/L Carbon Dioxide 26 (23-29) mEq/L BUN 33 H (8-23) mg/dL Creatinine 1.91 H (0.70-1.30) mg/dL Glucose 133 H (70-105) mg/dL Calcium 9.0 (8.6-10.3) mg/dL Total Bilirubin 0.6 (0.3-1.0) mg/dL AST 9 L (13-39) Units/L ALT 4 L (7-52) Units/L Alkaline Phosphatase 79 (34-104) Units/L Albumin 3.6 (3.5-5.7) g/dL Consult Discharge Plan - Plan [facility]: [facility] [Primary Care Provider[facility] -
[2018-02-09] MEDS ORDERED: Ampicillin/Sulbactam 1,500 MG in 0.9 % Sodium Chloride Mini Bag 100 ML IVPB ONE (07:33)
[2018-02-09] MEDS ORDERED: 0.9 % Sodium Chloride 500 ML ONE ×2 (07:36→07:54)
[2018-02-09] MEDS ORDERED: *HR* FentaNYL (PF) 100 MCG/2 ML VIAL IVP ONE (07:43)
[2018-02-09] MEDS ORDERED: *HR* Midazolam HCl 2 MG/2 ML VIAL IVP ONE (07:44)
--- NOTE | 2018-02-09 08:47 | IR Procedure Note ---
Date of procedure: 02/09/18 Consent Obtained: Written consent Timeout: Correct patient and procedure verified, Correct site verified, Time out performed, Skin prep completed Local anesthetic: Lidocaine 1% Indications: Bilateral ureteral obstruction, bladder mass Procedure Performed: Replacement L, new R nephrostomy tube Was there an child welfare assistant present: No Site/Technique: 10fr drains bilaterally. Able to replace left through existing tract. Results/Findings: Working well, currently draining. Estimated blood loss (cc): 2 Complications: None; Tolerated procedure well Post Procedure Treatment Plan: Monitoring in pts room. Specimen: n/a
[2018-02-09] MEDS: traMADol 50 MG TABLET PO SCH ×2 (10:17→21:23)
[2018-02-09] MEDS: Cholecalciferol (D-3) 1,000 UNIT TABLET PO SCH (10:18)
[2018-02-09] MEDS: Gabapentin 300 MG CAPSULE PO SCH ×2 (10:18→21:23)
[2018-02-09] MEDS: Diltiazem CD (24hr) 120 MG CAPSULE PO SCH (10:18)
[2018-02-09] MEDS: *HR* FentaNYL (PF) 100 MCG/2 ML VIAL IVP PRN ×2 (13:47→18:06)
--- NOTE | 2018-02-09 14:28 | Oncology Inp Consult Note ---
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 Discussed with patient and family who are more receptive to treatment/ Immunotherapy may be considered as he may not be a candidate for chemotherapy/ radiaction therapy. His performance status currently is poor. Advised follow up in oncology clinic, consider reimaging, improve nutrition and general condition prior to considering therapy. He is currently not in any pain. Alternatively, if he fails to improve will consider palliative care option. Plan discussed extensively with patient's health care proxy bedside. Will schedule appt in clinic next wk. Qualifiers: Bladder location: unspecified site Qualified Code(s): C67.9 - Malignant neoplasm of bladder, unspecified - Data of Consult Requesting Physician: Niurka Rodriguez CNP Primary Care Provider: PCP [place] - Consult Narrative Reason for consult: bladder cancer History of present illness: Mr. Bazzi is a 72 year old male with hx poorly differentiated bladder tumor, diagnosed in 01/12 when he presented with hematuria, underwent cystoscopy by DR Bethea that showed large tumor growth in the bladder that was biopsied. HE had a left hydroneohrosis and nephrostomy tube placed at that time. Patient did not have any further hematuria, but had a fall and tube got displaced. HE had repeat CT scan that shows bladder thickening and left hydronephrosis. He also had mild rt hydronephrosis, unable to void. He had rt nephrostomy tube and replacement of left side tube that is darining urine He denies any pain due to procedure. Per family he is not eating well, poor appetite, fallen at home and felt wk. He sleeps most time at home needing assistance from his friend/family who is also a nurse. When he was seen in the hospital last admission, they were upset about diagnosis not wanting chemotherapy due to his prior experience with chemo and cancer diagnosis. She is currently wanting to know treatment options that he would be able to take. Past Med Surg Social Fam HX - Past Medical History Medical history: cancer (bladder cancer), CVA, renal disease Psychiatric history: no psych history - Past Surgical History Surgical History: cataract, other - Social History Smoking Status: Current every day smoker Smokeless Tobacco Status: No Alcohol use: none Drug use: none - Family History Mother Family Member Ethnicity: Non- Living Status: Hx Family Neuromuscular Disorders: Yes (Alzheimer's) Sister Family Member Ethnicity: Non- Living Status: Hx Family GI Disorders: Yes (Crohn's) Father Family Member Ethnicity: Non- Living Status: Medications and Allergies Atorvastatin Calcium [Lipitor] 20 mg PO DAILY 01/07/18 [History] Brimonidine 0.2% [Alphagan] 1 drop RIGHT EYE BID 01/07/18 [History] Diltiazem HCl [Tiazac] 120 mg PO DAILY 01/07/18 [History] Gabapentin [Neurontin] 600 mg PO BID 01/07/18 [History] Levothyroxine Sodium [Levoxyl] 75 mcg PO DAILY 01/07/18 [History] Memantine [Namenda] 5 mg PO BID 01/07/18 [History] Omeprazole [PriLOSEC] 20 mg PO DAILY 01/07/18 [History] Tamsulosin [Flomax] 0.4 mg PO DAILY 01/07/18 [History] Timolol Maleate 0.5% [Timolol Maleate 0.5%] 1 drop RIGHT EYE BID 01/07/18 [ History] Tramadol HCl [Ultram] 100 mg PO QID 01/07/18 [History] cloNIDine HCl [CloNIDine HCl] 0.1 mg PO BID 01/07/18 [History] Aspirin [Lo-Dose Aspirin EC] 81 mg PO DAILY 02/08/18 [History] Cholecalciferol (D-3) [Vitamin D] 1,000 unit PO DAILY 02/08/18 [History] 3 Allergy/AdvReac Type Severity Reaction Status Date / Time Iodinated Contrast- Oral and Allergy See Verified 02/08/18 20:29 IV Dye Comments Review of systems: as above Oncology - Exam - Constitutional Vitals: Temp Pulse Resp BP Pulse Ox 97.7 F 85 16 146/87 94 02/09/18 10:30 02/09/18 10:30 02/09/18 10:30 02/09/18 10:30 02/09/18 10:30 General appearance: no acute distress - Head Head exam: Present: atraumatic - Eye Eye exam: Present: sclera anicteric Additional comments: s/p rt eye surgery - Neck Neck exam: Present: normal inspection - Respiratory Respiratory exam: Present: CTAB - Cardiovascular Cardiovascular exam: Present: +S1, +S2 - GI/Abdominal GI/Abdominal exam: Present: normal bowel sounds, soft Additional comments: rt nephrostomy tube pink drainage. left side-clear urine - Extremities Exam Extremities exam: Present: normal inspection - Neurological Exam Neurological exam: Present: alert, CN II-XII intact, oriented X3 Oncology - Results Labs: Short CBC 02/09/18 Range/Units 03:54 WBC 13.4 H D (4.3-11.1) K/mcL Hgb 13.1 (12.9-16.9) g/dL Hct 39.4 (37.5-50.1) % Plt Count 217 (140-400) K/mcL Neutrophils # 12.0 H (1.6-8.9) K/mcL BMP 02/09/18 03:54 Sodium 138 Potassium 3.9 Chloride 104 Carbon Dioxide 26 BUN 33 H Creatinine 1.91 H Glucose 133 H Calcium 9.0 Liver Function 02/09/18 Range/Units 03:54 Total Bilirubin 0.6 (0.3-1.0) mg/dL AST 9 L (13-39) Units/L ALT 4 L (7-52) Units/L Alkaline Phosphatase 79 (34-104) Units/L Albumin 3.6 (3.5-5.7) g/dL Consult Discharge Plan - Plan [facility]errals: [facility] [Primary Care Provider] -
[2018-02-09 15:30] LABS: Bilirubin,Urine Negative (Negative); Blood,Urine Large (Negative); Clarity,Urine Turbid (Clear); Color,Urine Yellow (Yellow); Glucose,Urine (UA) Normal (Normal); Ketones,Urine Negative (Negative); Leukocyte Esterase,Urine Large (Negative); Nitrite,Urine Negative (Negative); PH,Urine 6.5 pH Units (5.0-8.0); Protein,Urine >=1000 mg/dL (Neg-Trace); Specific Gravity,Urine 1.025 (1.010-1.025); Urobilinogen,Urine Normal (Normal)
[2018-02-09 15:32] LABS: Bacteria,Urine Few per hpf (None-Few); Squamous Epithelial Cell,Urine Many per lpf (None-Few); WBC,Urine TNTC per hpf (0-3)
[2018-02-09 16:07] LABS: RBC,Urine Present per hpf (0-3)
--- NOTE | 2018-02-09 16:18 | Internal Med Progress Note ---
Date of Encounter: 02/09/18 Time of Encounter: 10:00 - Assessment and plan (1) CKD (chronic kidney disease) stage 3, GFR 30-59 ml/min Current Visit: No Status: Chronic Assessment and plan: 1. Renal function at baseline. 2. Nephrostomy tubes have been placed bilaterally patient tolerated procedure well We will continue to monitor renal function (2) Obstructive uropathy Current Visit: Yes Status: Acute Assessment and plan: 1. Obstructive uropathy secondary to bladder malignancy Nephrostomy tubes placed bilaterally per IR today 2. Urology has been consulted and appreciate recommendations 3. Oncology has been consulted appreciate recommendations-patient will follow- up with oncology as outpatient (3) Bladder cancer Current Visit: Yes Status: Acute Assessment and plan: 1. Oncology has been consulted appreciate recommendations-patient will be seen tomorrow as outpatient if discharged otherwise oncology will see in-house 2. Urology consulted appreciate recommendations patient will follow-up as outpatient I will consult PT OT due to weakness and falls I will also consult dietary due to weight loss-significant other reports approximately 30 pound weight loss over the past 3 months Qualifiers: Bladder location: unspecified site Qualified Code(s): C67.9 - Malignant neoplasm of bladder, unspecified (4) DVT prophylaxis Current Visit: No Status: Acute Assessment and plan: 1. Heparin SQ. - Time Spent With Patient Total time spent is greater than 50% in coordination of care (as documented) at patient's floor/unit and/or counseling patient: - Subjective Interval history: 1 this patient is due to me I did review records, I did exam patient at bedside he just recently returned back from undergoing nephrostomy tube placement. He tolerated procedure well. Nephrostomy tubes are draining clear yellow urine at this time. Did speak to patient's significant other who is at bedside as well as patient, she expresses concern about patient weight loss as well as patient' s weakness. We will consult PT OT as well as dietary - Constitutional Vitals: Temp Pulse Resp BP Pulse Ox 99.3 F 64 16 123/78 93 02/09/18 15:09 02/09/18 15:09 02/09/18 15:09 02/09/18 15:09 02/09/18 15:09 General appearance: Present: cooperative, A&O X 3, pleasant, no acute distress, underweight, answers questions appropriately - Head Head exam: Present: atraumatic, normocephalic - Eye Eye exam: Present: PERRL, conjuntiva pink, sclera anicteric Pupils: Present: PERRL - Neck Neck exam general surgery: Present: supple, trachea midline. Absent: lymphadenopathy - Respiratory Respiratory exam: Present: CTAB. Absent: accessory muscle use, rales, rhonchi, wheezes - Cardiovascular Cardiovascular exam: Present: RRR, +S1, +S2. Absent: diastolic murmur, gallop, rubs, systolic murmur - GI/Abdominal GI/Abdominal exam: Present: normal bowel sounds, soft, no peritoneal signs. Absent: distended, tenderness - Extremities Exam Extremities exam: Present: warm, radial pulses palpable and symmetrical. Absent : calf tenderness, cyanotic, pedal edema Additional comments: Bilateral nephrostomy tubes that are draining clear yellow urine - Neurological Exam Neurological exam: Present: CN II-XII intact, oriented X3, no focal deficits. Absent: pronater drift, facial droop, speech deficit - Skin Skin exam: Present: dry, intact Internal Medicine: Result - Labs CBC & Chem 7: 02/09/18 03:54 02/09/18 03:54 Labs: Short CBC 02/09/18 Range/Units 03:54 WBC 13.4 H D (4.3-11.1) K/mcL Hgb 13.1 (12.9-16.9) g/dL Hct 39.4 (37.5-50.1) % Plt Count 217 (140-400) K/mcL Neutrophils # 12.0 H (1.6-8.9) K/mcL BMP 02/09/18 03:54 Sodium 138 Potassium 3.9 Chloride 104 Carbon Dioxide 26 BUN 33 H Creatinine 1.91 H Glucose 133 H Calcium 9.0 Liver Function 02/09/18 Range/Units 03:54 Total Bilirubin 0.6 (0.3-1.0) mg/dL AST 9 L (13-39) Units/L ALT 4 L (7-52) Units/L Alkaline Phosphatase 79 (34-104) Units/L Albumin 3.6 (3.5-5.7) g/dL Urine 02/09/18 Range/Units 15:15 Urine Color Yellow (Yellow) Urine Clarity Turbid A (Clear) Urine pH 6.5 (5.0-8.0) pH Units Ur Specific [place] 1.025 (1.010-1.025) Urine Protein >=1000 H (Neg-Trace) mg/dL Urine Glucose (UA) Normal (Normal) mg/dL - ABG Interpretation ABG results: PT/INR, D-dimer PT 12.5 Seconds (9.4-12.1) H 02/09/18 03:54 Consult Discharge Plan - Plan [facility]errals: [facility] [Primary Care Provider] -
[2018-02-09] MEDS: Aspirin Enteric Coated 81 MG Tablet PO SCH (21:23)
[2018-02-10] MEDS: *HR* Heparin 5,000 UNIT/ML VIAL SQ SCH (05:56)
--- NOTE | 2018-02-10 07:19 | Urology Progress Note ---
Date of Encounter: 02/10/18 Time of Encounter: 07:17 - Assessment and Plan (1) Cancer of overlapping sites of bladder Current Visit: Yes Status: Acute Assessment and plan: per oncology. no further urological intervention at this time. call with questions. (2) Hydronephrosis Current Visit: Yes Status: Acute Assessment and plan: sp b/l nephrostomy tubes. ok for dc per urology. f/u per oncology. Patient can f/u with Dr. Bethea in 1-2 months. Qualifiers: Hydronephrosis type: other Qualified Code(s): N13.39 - Other hydronephrosis (3) Elevated serum creatinine Current Visit: Yes Status: Acute Assessment and plan: improving. expect continued improvement because both pcn tubes are having good uop. Progress Note Narrative: Patient seen this am. sleeping. good uop from b/l pcn tubes. serum creatinine improving. Objective Initial Vital Signs Temp Pulse Resp BP Pulse Ox 98.1 F 63 18 87/56 94 02/08/18 15:49 02/08/18 15:49 02/08/18 15:49 02/08/18 15:49 02/08/18 15:49 - Respiratory Present: normal expansion, normal respiratory effort - Abdomen Present: soft. Absent: tender - Additional Exam back: straight spine with b/l pcn tubes draining clear urine. - Labs 02/09/18 03:54 02/09/18 03:54 Consult Discharge Plan - Plan [facility]errals: [facility] [Primary Care Provider] -
[2018-02-10 08:27] LABS: Basophils % 0.3 %; Eosinophils # 0.2 K/mcL (0.0-0.6); Eosinophils % 1.9 %; Hematocrit 37.3 % (37.5-50.1); Hemoglobin 12.4 g/dL (12.9-16.9); Immature Granulocytes % 0.4 % (0-4); Lymphocytes % 8.1 %; Mean Corpuscular HGB Conc 33.2 g/dL (31.6-35.5); Mean Corpuscular Hemoglobin 29.2 pg (28.0-33.3); Mean Corpuscular Volume 87.8 fL (83.0-100.0); Monocytes # 0.5 K/mcL (0.0-1.3); Neutrophils # 10.1 K/mcL (1.6-8.9); Platelet Count 190 K/mcL (140-400); Red Blood Count 4.25 M/mcL (4.19-5.50); Red Cell Distribution Width 13.4 % (11.5-14.5); Segmented Neutrophils % 85.3 %
[2018-02-10 08:38] LABS: Calcium 8.8 mg/dL (8.6-10.3); Potassium 4.3 mEq/L (3.5-5.1)
[2018-02-10] MEDS: traMADol 50 MG TABLET PO SCH (09:28)
[2018-02-10] MEDS: Cholecalciferol (D-3) 1,000 UNIT TABLET PO SCH (09:29)
[2018-02-10] MEDS: Gabapentin 300 MG CAPSULE PO SCH (09:29)
[2018-02-10] MEDS: Diltiazem CD (24hr) 120 MG CAPSULE PO SCH (09:29)
[2018-02-10 11:47] VITALS: BP 117/76
--- NOTE | 2018-02-10 15:25 | Discharge Summary ---
- NOTES TO OUTPATIENT PROVIDER Notes to Outpatient Provider: He is to follow-up with oncology/as well as urology. monitor urine and CBC for infection Orders not resulted at time of discharge: Pending orders 02/08/18 20:39 ECG 12 lead ECG [ECG] Routine Date of Encounter: 02/10/18 Time of Encounter: 15:21 - Discharge Diagnosis (1) CKD (chronic kidney disease) stage 3, GFR 30-59 ml/min Priority: Secondary Status: Chronic (2) Obstructive uropathy Priority: Primary Status: Acute (3) Bladder cancer Priority: Secondary Status: Acute Qualifiers: Bladder location: unspecified site Qualified Code(s): C67.9 - Malignant neoplasm of bladder, unspecified Hospital course: Mr. Bazzi is a 72 year old male past medical history CVA renal disease history of poorly differentiated bladder tumor diagnosed in 01/12 he presented with hematuria he underwent cystoscopy by Dr. Bethea large tumor growth in the bladder that was biopsied he had left hydronephrosis and nephrostomy tube was placed at that time. The patient sustained a mechanical fall from standing his tube was displaced. He presented to the [place] [facility] repeat CT showed the bladder thickening and left hydronephrosis he also had mild right hydronephrosis and he was unable to void. He was seen by urology and he went to IR and right nephrostomy tube was placed as well as a left nephrostomy tube breath for draining urine. Okay to DC per urology in the follow-up with Dr. Bethea in 1- 2 months. Patient's creatinine was elevated very improving suspect will continue to improve while urostomy tubes are in place he will follow up with primary as outpatient to monitor patient was seen by oncology and will be seen as an outpatient in the clinic next week to discuss plan of care. I did have dietary see patient since he has had some weight loss recommending ensure, ET and OT were also consulted due to fall family and patient are refusing assessment. Patient is hemodynamically stable at this time he is maintaining oral intake he is ready for discharge. Advised him to follow-up with oncology urology and primary care Discharge discussed with: patient - Time Spent with Patient Total time spent providing and/or coordinating discharge services: - Discharge Medications Home Medications: Atorvastatin Calcium [Lipitor] 20 mg PO DAILY 01/07/18 [History] Brimonidine 0.2% [Alphagan] 1 drop RIGHT EYE BID 01/07/18 [History] Diltiazem HCl [Tiazac] 120 mg PO DAILY 01/07/18 [History] Gabapentin [Neurontin] 600 mg PO BID 01/07/18 [History] Levothyroxine Sodium [Levoxyl] 75 mcg PO DAILY 01/07/18 [History] Memantine [Namenda] 5 mg PO BID 01/07/18 [History] Omeprazole [PriLOSEC] 20 mg PO DAILY 01/07/18 [History] Tamsulosin [Flomax] 0.4 mg PO DAILY 01/07/18 [History] Timolol Maleate 0.5% 1 drop RIGHT EYE BID 01/07/18 [History] Tramadol HCl [Ultram] 100 mg PO QID 01/07/18 [History] cloNIDine HCl [CloNIDine HCl] 0.1 mg PO BID 01/07/18 [History] Aspirin [Lo-Dose Aspirin EC] 81 mg PO DAILY 02/08/18 [History] Cholecalciferol (D-3) [Vitamin D] 1,000 unit PO DAILY 02/08/18 [History] Allergies/Adverse Reactions: 3 Allergy/AdvReac Type Severity Reaction Status Date / Time Iodinated Contrast- Oral and Allergy See Verified 02/08/18 20:29 IV Dye Comments Date of admission: 02/08/18 19:32 [facility] care physician: [facility] Consults: 02/08/18 20:48 Consult to Interventional Radiology [CONS] Routine Consulting Provider: Radiology Interventional Cols Reason for Consult: nephrostomy tube placement bilateral Time Notified: 20:00 Call Completed: Yes 02/09/18 07:00 Consult to Oncology [CONS] Routine Consulting Provider: Oncology [facility] Reason for Consult: bladder cancer Call Completed: Yes 02/09/18 16:14 consult to signwriter [Consult to Nutrition] [CONS] Routine Comment: Consulting Provider: NUTRITION Reason for Dietary Consult: PO Supplementation Discharging clinician: Odilia Zamora Anticipated date of discharge: 02/10/18 - Constitutional Vitals: Temp Pulse Resp BP Pulse Ox 100.0 F H 64 16 117/76 91 02/10/18 11:46 02/10/18 11:46 02/10/18 11:46 02/10/18 11:46 02/10/18 11:46 General appearance: Present: cooperative, A&O X 3, pleasant, no acute distress, underweight, answers questions appropriately - Head Head exam: Present: atraumatic, normocephalic - Eye Eye exam: Present: PERRL, conjuntiva pink, sclera anicteric Pupils: Present: PERRL - Neck Neck exam general surgery: Present: supple, trachea midline. Absent: lymphadenopathy - Respiratory Respiratory exam: Present: CTAB. Absent: accessory muscle use, rales, rhonchi, wheezes - Cardiovascular Cardiovascular exam: Present: RRR, +S1, +S2. Absent: diastolic murmur, gallop, rubs, systolic murmur - GI/Abdominal GI/Abdominal exam: Present: normal bowel sounds, soft, no peritoneal signs. Absent: distended, tenderness - Extremities Exam Extremities exam: Present: warm, radial pulses palpable and symmetrical. Absent : calf tenderness, cyanotic, pedal edema - Neurological Exam Neurological exam: Present: CN II-XII intact, oriented X3, no focal deficits. Absent: pronater drift, facial droop, speech deficit - Skin Skin exam: Present: dry, intact - Patient Status Disposition: Home, Self-Care Condition: Good Functional capacity at discharge: independent ambulation Overall status at discharge: patient is progressing back to baseline - Discharge Instructions Instructions: Nephrostomy Tube Care (DC) Follow Up With: Vito Colmenares MD [Partnered Physician] - 02/17/18 11:20 am [place],PCP [Primary Care Provider] - 02/14/18 12:30 pm () Additional Instructions: Per Interventional Radiology the nephrostomy tube dressings need changed every 7 days or PRN if soiled. The Dietitian recommended that you eat what feels appealing to you because you need the calories and try add ensure into your diet, coupons have been provided. Follow-up appointments: If there is not an appointment listed below, please call your physician and schedule a follow-up appointment. If you have congestive heart failure and your symptoms return, make an appointment with your physician. Medication List: Carry an up to date list of medications you are taking at all time. We have given you an updated medication list including any new medications that you have been prescribed. Please provide that list to your primary provider Symptoms: If your condition changes or you experience any of the following symptoms, notify your physician immediately: Unusual or worsening pain, fever, persistent nausea and vomiting, bleeding, increase in swelling (especially in your legs), sudden weight gain, extreme dizziness, chest pain, increased drainage or redness from a wound or incision. Go to the emergency department if you experience a problem with breathing. Weights: If you have a history of swelling or shortness of breath, weigh yourself daily and notify your physician if you have a weight gain of two or more pounds in one day or 5 or more pounds in a week. If you experience any of the warning signs for stroke: Sudden numbness or weakness of the face, arm or leg; especially on one side of the body, sudden confusion, trouble speaking or understanding, sudden trouble seeing in one or both eyes, sudden trouble walking, dizziness, loss of balance or coordination, sudden sever headache with no cause; Call 911 or go to the emergency room. Stroke is a medical emergency. Some risk factors for stroke: Age, cigarette smoking, diabetes, excessive alcohol consumption, family history , high blood pressure, overweight, physical inactivity, prior stroke, heart attack, diagnosis of carotid artery stenosis or other artery disease. If you smoke, STOP: Smoking or tobacco use significantly increases your risk of heart and lung disease. Your chance of disease greatly increases if you continue to smoke. For more information, call the [facility] tobacco quit line for smoking cessation QUIT-NOW ( ) - Diet and Activity Activity: resume usual activities as tolerated Diet: advance to your usual diet
== END 2018-02-10 16:03 | disposition home or self-care (01) ==
LOC: 3BNU 15:48 → EMEROO 15:48 → 3BNU 21:12
PROVIDERS: ADMIT Internal Medicine; ATTEND Registered Nurse